=== PATIENT | female | born 1985 | race Caucasian/White ===

== ENCOUNTER → 2017-08-11 | Outpatient (CLI) | payer OTHER ==
--- NOTE | 2017-08-11 16:52 | Diagnostic Imaging Report ---
PROCEDURE: US OB SINGLE FETUS <14 WKS. TECHNIQUE: Multiple real-time grayscale images were obtained over the gravid uterus in various projections. INDICATION: Size and dates. FINDINGS: A richter gestation has crown-rump length compatible with an age of 9 weeks 2 days, sonographic date of confinement 03/14/2018. Heart rate of 169 beats per minute confirmed. There is no adnexal lesion. No extrauterine gestation. No jordan-sac hemorrhage or pathological fluid collection. The shape of the sac and amniotic volume appear grossly unremarkable. IMPRESSION: Early richter viable IUP measures 9 weeks 2 days. No pathological finding demonstrated. Dictated on workstation # [id number]
== END ==
LOC: RAD 14:33
PROVIDERS: ATTEND Family Medicine
DX: Z34.81 Encounter for supervision of other normal pregnancy, first trimester (principal); Z3A.09 9 weeks gestation of pregnancy
CPT/HCPCS: 76801

== ENCOUNTER → 2017-10-27 | Outpatient (CLI) | payer OTHER ==
--- NOTE | 2017-10-27 15:30 | Diagnostic Imaging Report ---
INDICATION: survey. TECHNIQUE: Multiple real-time grayscale images were obtained over the gravid uterus. COMPARISON: 08/11/2017. FINDINGS: There is a single live fetus in a cephalic presentation. Placenta is anterior. The amniotic fluid volume is normal. heart rate was recorded at 155 beats per minute. survey demonstrates kidneys, bladder, and stomach to be unremarkable. brain is unremarkable. There is a three-vessel cord with normal cord insertion. The four-chamber heart view was limited in evaluation. In addition, spine is limited due to position. Biometrical measurements are as follows: Biparietal 4.9 cm, age 20 weeks 6 days. Head circumference 18.0 cm, age 20 weeks 4 days. Abdominal circumference 15.0 cm, age 20 weeks 2 days. Femur length 3.4 cm, age 20 weeks 4 days. Sonographic estimate age: 24 weeks 5 days. Sonographic estimated date of delivery: 03/12/18. Estimated Weight: 350 gm (+/- 51 gm). LMP percentile: 52%. heart rate: 155 beats per minute. number: 1 of 1. IMPRESSION: Single live IUP of approximately 25 weeks gestational age demonstrating normal interval growth when compared with exam from 08/11/2017. The four-chamber heart view and spine were limited due to position. Followup could be performed. Dictated by: Dictated on workstation # [id number]
== END ==
LOC: RAD 14:20
PROVIDERS: ATTEND Family Medicine
DX: Z34.82 Encounter for supervision of other normal pregnancy, second trimester (principal); Z3A.25 25 weeks gestation of pregnancy
CPT/HCPCS: 76805

== ENCOUNTER → 2017-11-17 | Outpatient (CLI) | payer OTHER ==
--- NOTE | 2017-11-17 15:50 | Diagnostic Imaging Report ---
INDICATION: Followup spine and four-chamber heart. TECHNIQUE: Multiple real-time grayscale images were obtained over the gravid uterus. COMPARISON: 10/27/2017. FINDINGS: There is a single live fetus in a transverse presentation. The placenta is anterior. The amniotic fluid volume appears normal. heart rate is recorded at 143 beats per minute. There is a four-chamber heart view on today's study. The spine continues to be limited in evaluation due to position. Cervical length is 4.3 cm. IMPRESSION: Continued limited evaluation of the spine. Followup could be obtained. Dictated by: Dictated on workstation # [id number]
== END ==
LOC: RAD 14:28
PROVIDERS: ATTEND Family Medicine
DX: Z04.8 Encounter for examination and observation for other specified reasons (principal); Z3A.23 23 weeks gestation of pregnancy
CPT/HCPCS: 76816

== ENCOUNTER → 2018-01-16 | Outpatient (CLI) | payer OTHER ==
--- NOTE | 2018-01-16 19:59 | Diagnostic Imaging Report ---
INDICATION: Previous exam dated 11/17/2017 showed limited visualization of the spine. This limited exam is its follow-up. TECHNIQUE: Multiple real-time grayscale images were obtained over the gravid uterus. COMPARISON: None FINDINGS: The spine appears unremarkable today. Amniotic fluid volume is unremarkable. The placenta is anterior with no abruption or previa. Jimenez gestation has regular heart rate of 149 bpm and is in cephalic position. IMPRESSION: Follow-up exam reveals unremarkable appearance of the spine with normal YOLANDA and no adverse development. Dictated by: Dictated on workstation # [id number]
== END ==
LOC: RAD 14:32
PROVIDERS: ATTEND Family Medicine
DX: Z36.2 Encounter for other antenatal screening follow-up (principal); Z3A.31 31 weeks gestation of pregnancy
CPT/HCPCS: 76816

== ENCOUNTER 2018-03-07 20:51 | Inpatient (IN) | payer OTHER ==
[~2018-03-07] VITALS: Ht 162.6 cm; Wt 76.9 kg
[2018-03-07] VITALS (17 sets, daily range): BP systolic 112–166; BP diastolic 59–92
[2018-03-07] MEDS ORDERED: D5 LR IV SOLUTION 1,000 ML IV ONE (21:10)
[2018-03-07] MEDS: D5 LR IV SOLUTION 1,000 ML IV SCH (21:30)
[2018-03-07] MEDS ORDERED: MINERAL OIL CONCENTRATE 99.9% 15 ML UDC TOP PRN (21:45)
[2018-03-07 21:50] LABS: BASOPHILS % (AUTO) 0 % (0-10); EOSINOPHILS % (AUTO) 0 % (0-10); HEMATOCRIT 36 % (35-52); HEMOGLOBIN 13.1 G/DL (11.5-16.0); LYMPHOCYTES % (AUTO) 9 % (12-44); MEAN CORPUSCULAR HEMOGLOBIN 33 PG (25-34); MEAN CORPUSCULAR HGB CONC 36 G/DL (32-36); MEAN CORPUSCULAR VOLUME 92 FL (80-99); MEAN PLATELET VOLUME 9.9 FL (7.4-10.4); MONOCYTES # (AUTO) 1.5 X 10^3 (0.0-1.0); MONOCYTES % (AUTO) 7 % (0-12); NEUTROPHILS # (AUTO) 18.2 X 10^3 (1.8-7.8); NEUTROPHILS % (AUTO) 84 % (42-75); PLATELET COUNT 366 10^3/uL (130-400); RED BLOOD COUNT 3.92 10^6/uL (4.35-5.85); RED CELL DISTRIBUTION WIDTH 12.9 % (10.0-14.5); WHITE BLOOD COUNT 21.8 10^3/uL (4.3-11.0)
[2018-03-07] MEDS ORDERED: CATHETER FLUSH 10 ML SYR IV SCH (22:00)
[2018-03-07] MEDS ORDERED: SUFENTA 0.6MCG/ML BUPIVA 0.125 100 ML ONE (22:08)
[2018-03-07 22:13] LABS: BAND NEUTROPHILS 18 %; BASOPHILS % (MANUAL) 0 %; EOSINOPHILS % (MANUAL) 0 %; LYMPHOCYTES % (MANUAL) 13 %; MONOCYTES % (MANUAL) 6 %; NEUTROPHILS % (MANUAL) 63 %
[2018-03-07 22:14] LABS: RBC MORPH NORMAL
[2018-03-07] MEDS ORDERED: fentaNYL INJECTION 100 MCG/2 ML AMP ONE (22:15)
[2018-03-07] MEDS ORDERED: BUPIVACAINE 0.25% 30 ML (SENSORCAINE) VIAL ONE (22:15)
[2018-03-07] MEDS ORDERED: RANI150T11 PO ×2 (22:20)
[2018-03-07] MEDS ORDERED: PREN-37 PO ×2 (22:21)
--- NOTE | 2018-03-07 22:22 | History & Physical-OB ---
OB - Chief Complaint & HPI Date/Time Date of Admission: Date of Admission: 03/07/18 Time Seen by Provider: 22:00 Chief Complaint/History OB-Reason for Admission/Chief: Rupture of Membranes Hx : 1 Hx Para: 0 Expected Date of Delivery: Mar 13, 2018 Gestational Age in Weeks: 39 Gestational Age in Days: 1 Other reason for admission: SROM at home just prior to arrival around 2100 while sitting at the table. History of Labs O+, ant neg, RI. HIV/HepB/RPR NR. GC/chlamydia neg. Glucola normal. GBS neg. Allergies and Home Medications Allergies Coded Allergies: erythromycin base (Verified Allergy, Unknown, 03/07/18) Home Medications Vit/Iron Fumarate/FA 1 Each Tablet, 1 EACH PO DAILY, (Reported) Ranitidine HCl 150 Mg Tablet, 150 MG PO DAILY, (Reported) Patient Home Medication List Home Medication List Reviewed: Yes OB - History Hx of Present Care: Yes Ultrasounds: Normal mid trimester US Obstetrical Complications: None (borderline elevated BP last few visits) Information Induced Hypertension: No Maternal Gestational Diabetes: No Hemorrhage: No Obstetrical History Hx : 1 Hx Para: 0 Hx # Term Pregnancies: 0 Hx # Pregnancies: 0 Number of Living Children: 0 Hx Termination: No Hx Multiple Gestation: No Hx Ectopic : No Hx Stillbirth: No Hx Complication: No Hx Induced Hypertens: No Hx Maternal Gestational Diabet: No Hx Hemorrhage: No Delivery History Hx Dystocia: No Hx Forceps Assisted Delivery: No Hx Vacuum Extraction Assisted: No Hx Placenta Abnormality: No Hx Distress: No Hx Large For Gestational Age I: No Hx Small for Gestational Age I: No Hx Section: No Hx Vaginal Delivery Post C-Sec: No Hx Blood Disorders: No Adverse Rxn to Tranfusion: No Patient Past Medical History PMHx: Denies PSurgHx: appendectomy Social History/Family History HIV/AIDS: No Recent Infectious Disease Expo: No Sexually Transmitted Disease: No Alcohol Use: Denies Use Recreational Drug Use: No Smoking Cessation: Current every day smoker Immunizations Tetanus Booster (TDap): Less than 5yrs Rubella: immune RPR/VDRL: Negative GBS Status: Negative HBsAG: Negative OB - Admission Exam Physical Exam HEENT: NCAT Abdomen: Non tender Cervical Dilatation: other (3.5) Effacement: 100% Station: 0 Membranes: Ruptured Amniotic Fluid: Thin Meconium Heart Rate: 150's Decelerations: Late Decelarations Short Term Variability: Present Contractions on Admission: < 5 Minutes Apart Intensity: Firm Labs Laboratory Tests Test 03/07/18 21:30 Range/Units White Blood Count 21.8 H 4.3-11.0 10^3/uL Red Blood Count 3.92 L 4.35-5.85 10^6/uL Hemoglobin 13.1 11.5-16.0 G/DL Hematocrit 36 35-52 % Mean Corpuscular Volume 92 80-99 FL Mean Corpuscular Hemoglobin 33 25-34 PG Mean Corpuscular Hemoglobin Concent 36 32-36 G/DL Red Cell Distribution Width 12.9 10.0-14.5 % Platelet Count 366 130-400 10^3/uL Mean Platelet Volume 9.9 7.4-10.4 FL Neutrophils (%) (Auto) 84 H 42-75 % Lymphocytes (%) (Auto) 9 L 12-44 % Monocytes (%) (Auto) 7 0-12 % Eosinophils (%) (Auto) 0 0-10 % Basophils (%) (Auto) 0 0-10 % Neutrophils # (Auto) 18.2 H 1.8-7.8 X 10^3 Lymphocytes # (Auto) 2.0 1.0-4.0 X 10^3 Monocytes # (Auto) 1.5 H 0.0-1.0 X 10^3 Eosinophils # (Auto) 0.0 0.0-0.3 10^3/uL Basophils # (Auto) 0.0 0.0-0.1 10^3/uL Neutrophils % (Manual) 63 % Lymphocytes % (Manual) 13 % Monocytes % (Manual) 6 % Eosinophils % (Manual) 0 % Basophils % (Manual) 0 % Band Neutrophils 18 % Blood Morphology Comment NORMAL OB - Assessment/Plan/Diagnosis Assessment Assessment: active labor, rupture of membranes Admission Dx Term intrauterine at 39 weeks Spontaneous rupture of membranes Meconium stained fluid GBS neg RI Admission Status: Inpatient Order (span 2 midnights) Reason for Inpatient Admission: Labor and delivery and course. Plan Plan: Expectant Management Other Plan Recurrent late decelerations noted shortly after arrival with good variability, resolved with lying left side, fluid bolus and supplemental oxygen. Will monitor closely. AGNES CODY MD Mar 07, 2018 10:22 pm
--- OUTSIDE RECORDS SUMMARY | 2018-03-07 22:31 | XMS REPORT ---
Author Author ESCOBAR AGNES [facility] Address [address] [place] [address] Care Team Providers Care Drug Abuse Program Coordinator Name Role Phone ESCOBAR AGNES Unavailable PROBLEMS Type Condition ICD9-CM Code [id number] Code Onset Dates Condition Status SNOMED Code Problem care, first in third trimester Z34.03 Active 840595281 ALLERGIES No Information ENCOUNTERS Encounter Location Date Diagnosis [place] [address] [place] [address] 52855- 5832 Feb, [place] [address] [place] [id number] [place] [address] 39451- 6567 Feb, care, first in third trimester Z34.03 and 38 weeks gestation of Z3A.38 [place] [address] [id number] [place] [address] 41201- 9840 Jan, care, first in third trimester Z34.03 and 37 weeks gestation of Z3A.37 [place] [address] [place] [address] 37354- 1027 Jan, care, first in third trimester Z34.03 ; Third trimester Z34.93 and 36 weeks gestation of Z3A.36 [place] [address] [id number] [place] [address] 39145- 5222 Jan, care, first in third trimester Z34.03 and 34 weeks gestation of Z3A.34 [place] [address] [id number] [place] [address] 03381- 6021 Dec, Third trimester Z33.1 and 32 weeks gestation of Z3A.32 [place] [address] [place] [address] [id number] [place] [address] 68939- 8313 Dec, [place] [address] [place] [address] 43632- 3909 10 Dec, 2017 Third trimester Z34.93 ; Encounter for immunization Z23 ; Evaluate anatomy not seen on prior sonogram Z04.8 and 30 weeks gestation of Z3A.30 [place] [address] [id number] [place] [address] 45788- 4170 27 Nov, 2017 Diabetes mellitus screening Z13.1 ; 28 weeks gestation of Z3A.28 and care, first in third trimester Z34.03 [place] [address] [address] [id number] [place] [address] 90231- 6399 07 Nov, 2017 Encounter for physical examination related to employment Z02.1 [place] [address] [place] [address] [id number] [place] [address] 02119- 3449 24 Oct, 2017 [place] [address] [address] [id number] [place] [address] 35704- 2454 14 Oct, 2017 21 weeks gestation of Z3A.21 ; Evaluate anatomy not seen on prior sonogram Z04.8 and care in second trimester Z34.92 [place] [address] [address] [id number] [place] [address] 68975- 8404 Sep, Second trimester Z34.92 and 17 weeks gestation of Z3A.17 [place] [address] [address] [id number] [place] [address] 60605- 9994 Aug, [place] [address] [place] [id number] [place] [address] 69140- 1369 Aug, care in first trimester Z34.91 and 12 weeks gestation of Z3A.12 [place] [address] [place] [address] [id number] [place] [address] 62277- 2833 15 Jul, 2017 [place] [address] [id number] [place] [address] 33667- 1846 13 Jul, 2017 Tobacco abuse Z72.0 [place] [address] [address] [id number] [place] [address] 42894- 1912 Jul, Normal , first Z34.00 ; Cervical cancer screening Z12.4 and 8 weeks gestation of Z3A.08 [facility] [address] [place] [id number] [address] Jul, Encounter for test Z32.00 [facility] [address] [facility] [id number] [address]85 Jul, [facility] [address] [facility] [id number] [id number] Mar, Right wrist pain M25.531 and Injury of tendon of right hand , initial encounter S66.901A IMMUNIZATIONS No Known Immunizations SOCIAL HISTORY Never Assessed REASON FOR VISIT Medication recommendation PLAN OF CARE VITAL SIGNS MEDICATIONS Unknown Medications RESULTS No Results PROCEDURES No Known procedures INSTRUCTIONS MEDICATIONS ADMINISTERED No Known Medications MEDICAL (GENERAL) HISTORY Type Description Date Medical History Heart Murmur Surgical History Appendectomy 1995 Hospitalization History Appendectomy 1995
--- OUTSIDE RECORDS SUMMARY | 2018-03-07 22:32 | XMS REPORT ---
Author Author EDUAR CHAVEZ [facility] Address [address] [place] [address] Phone Unavailable Care Team Providers Care Plumbing Contractor Name Role Phone EDUAR CHAVEZ Unavailable Unavailable PROBLEMS Type Condition ICD9-CM Code FPI44-IA Code Onset Dates Condition Status SNOMED Code Problem care, first in third trimester Z34.03 Active [id number] ALLERGIES Substance Reaction Event Type Date Status Erythromycin Unknown Drug Allergy Nov, Active ENCOUNTERS Encounter Location Date Diagnosis [place] [address] [place] [address] 93856- 0055 Feb, [place] [address] [place] [id number] [place] [address] 14880- 9613 Feb, [facility] [address] [place] [address] [id number] [place] [address] 87717- 9844 Jan, care, first in third trimester Z34.03 and 37 weeks gestation of Z3A.37 [place] [address] [place] [id number] [place] [address] 93261- 5024 Jan, care, first in third trimester Z34.03 ; Third trimester Z34.93 and 36 weeks gestation of Z3A.36 [place] [address] [place] [address] 48435- 0775 Jan, care, first in third trimester Z34.03 and 34 weeks gestation of Z3A.34 [place] [address] [place] [id number] [place] [address] 35311- 4566 Dec, Third trimester Z33.1 and 32 weeks gestation of Z3A.32 [place] [address] [place] [address] 50544- 5525 Dec, [place] [address] [place] [address] 12381- 8901 10 Dec, 2017 Third trimester Z34.93 ; Encounter for immunization Z23 ; Evaluate anatomy not seen on prior sonogram Z04.8 and 30 weeks gestation of Z3A.30 [place] [address] [place] [id number] [place] [address] 63023- 2742 27 Nov, 2017 Diabetes mellitus screening Z13.1 ; 28 weeks gestation of Z3A.28 and care, first in third trimester Z34.03 [place] [address] [id number] [place] [address] 97172- 1494 07 Nov, 2017 Encounter for physical examination related to employment Z02.1 [place] [address] [place] [id number] [place] [address] 32868- 5239 24 Oct, 2017 [place] [address] [place] [id number] [place] [address] 81351- 1543 October, 21 weeks gestation of Z3A.21 ; Evaluate anatomy not seen on prior sonogram Z04.8 and care in second trimester Z34.92 [place] [address] [id number] [place] [address] 71961- 1396 12 Sep, 2017 Second trimester Z34.92 and 17 weeks gestation of Z3A.17 [place] [address] [place] [id number] [place] [address] 03362- 1502 Aug, [place] [address] [place] [id number] [place] [address] 18126- 1036 Aug, care in first trimester Z34.91 and 12 weeks gestation of Z3A.12 [place] [address] [place] [id number] [place] [address] 20715- 7589 15 Jul, 2017 [place] [address] [place] [id number] [place] [address] 59826- 2608 13 Jul, 2017 Tobacco abuse Z72.0 [place] [address] [place] [id number] [place] [address] 98488- 6880 12 Jul, 2017 Normal , first Z34.00 ; Cervical cancer screening Z12.4 and 8 weeks gestation of Z3A.08 [facility] [address] [facility] [id number] [address] 02 Jul, 2017 Encounter for test Z32.00 [facility] [address] [facility] [id number], [place] [address] 02 Jul, 2017 [facility] [address] [id number] [address] 07 Mar, 2016 Right wrist pain M25.531 and Injury of tendon of right hand , initial encounter S66.901A IMMUNIZATIONS No Known Immunizations SOCIAL HISTORY Never Assessed REASON FOR VISIT [facility] (PHA/vision)-Stella HUGHES PLAN OF CARE Activity Details Follow Up prn Reason: VITAL SIGNS Height 64 in 2017-11-30 Weight 157.3 lbs 2017-11-30 Temperature 98.6 degrees Fahrenheit 2017-11-30 Heart Rate 78 bpm 2017-11-30 Respiratory Rate 20 2017-11-30 Oximetry 98 % 2017-11-30 BMI 27 kg/m2 2017-11-30 Blood pressure systolic 110 mmHg 2017-11-30 Blood pressure diastolic 72 mmHg 2017-11-30 MEDICATIONS Medication Instructions Dosage Frequency Start Date End Date Duration Status Nicorette 2 MG Mouth/Throat 24 time(s) a day 1 piece as needed Jul, Not-Taking Vitamin 27-0.8 MG Active RESULTS No Results PROCEDURES Procedure Date Ordered Result Body Site VISUAL ACUITY SCREEN November 30, 2017 INSTRUCTIONS MEDICATIONS ADMINISTERED No Known Medications MEDICAL (GENERAL) HISTORY Type Description Date Medical History Heart Murmur Surgical History Appendectomy 1995 Hospitalization History Appendectomy 1995
--- OUTSIDE RECORDS SUMMARY | 2018-03-07 22:32 | XMS REPORT ---
Author Author ESCOBAR AGNES [facility] Address [address] [place] [address] Care Team Providers Care Geologist Petroleum Name Role Phone ESCOBAR AGNES Unavailable PROBLEMS Type Condition ICD9-CM Code [id number] Code Onset Dates Condition Status SNOMED Code Problem care, first in third trimester Z34.03 Active [id number] ALLERGIES No Information ENCOUNTERS Encounter Location Date Diagnosis [place] [address] [place] [address] 87823- 3951 Feb, [place] [address] [place] [id number] [place] [address] 51097- 7748 Feb, care, first in third trimester Z34.03 and 38 weeks gestation of Z3A.38 [place] [address] [place] [id number] [place] [address] 51601- 5211 Jan, care, first in third trimester Z34.03 and 37 weeks gestation of Z3A.37 [place] [address] [place] [address] 02295- 9707 Jan, care, first in third trimester Z34.03 ; Third trimester Z34.93 and 36 weeks gestation of Z3A.36 [place] [address] [place] [id number] [place] [address] 75106- 8468 Jan, care, first in third trimester Z34.03 and 34 weeks gestation of Z3A.34 [place] [address] [place] [id number] [place] [address] 21730- 1711 Dec, Third trimester Z33.1 and 32 weeks gestation of Z3A.32 [place] [address] [place] [id number] [place] [address] 24495- 1336 Dec, [place] [address] [place] [address] 07715- 9316 10 Dec, 2017 Third trimester Z34.93 ; Encounter for immunization Z23 ; Evaluate anatomy not seen on prior sonogram Z04.8 and 30 weeks gestation of Z3A.30 [place] [address] [place] [id number] [place] [address] 25078- 2873 27 Nov, 2017 Diabetes mellitus screening Z13.1 ; 28 weeks gestation of Z3A.28 and care, first in third trimester Z34.03 [place] [address] [place] [id number] [place] [address] 06884- 8712 07 Nov, 2017 Encounter for physical examination related to employment Z02.1 [place] [address] [place] [id number] [place] [address] 14514- 2985 24 Oct, 2017 [place] [address] [place] [id number] [place] [address] 56306- 3332 14 Oct, 2017 21 weeks gestation of Z3A.21 ; Evaluate anatomy not seen on prior sonogram Z04.8 and care in second trimester Z34.92 [place] [address] [place] [id number] [place] [address] 91474- 0310 Sep, Second trimester Z34.92 and 17 weeks gestation of Z3A.17 [place] [address] [place] [id number] [place] [address] 20983- 6838 Aug, [place] [address] [place] [id number] [place] [address] 68454- 7976 Aug, care in first trimester Z34.91 and 12 weeks gestation of Z3A.12 [place] [address] [place] [id number] [place] [address] 13997- 5585 15 Jul, 2017 [place] [address] [place] [id number] [place] [address] 94138- 6473 13 Jul, 2017 Tobacco abuse Z72.0 [place] [address] [place] [id number] [place] [address] 22774- 5834 12 Jul, 2017 Normal , first Z34.00 ; Cervical cancer screening Z12.4 and 8 weeks gestation of Z3A.08 [facility] [address] [place] [id number] [address]- 2282 02 Jul, 2017 Encounter for test Z32.00 [facility] [address] [facility] [id number] [address] 5133 02 Jul, 2017 [facility] [address] [facility] [id number] [address] 07 Mar, 2016 Right wrist pain M25.531 and Injury of tendon of right hand , initial encounter S66.901A IMMUNIZATIONS Vaccine Route Administration Date Status TDAP (BOOSTRIX) IM Intramuscular January 02, 2018 Administered SOCIAL HISTORY Never Assessed REASON FOR VISIT OB 2wk f/u-awoods PLAN OF CARE Activity Details Follow Up 2 Weeks, 2 Weeks Reason: VITAL SIGNS Height 64 in 2018-01-02 Weight 168.6 lbs 2018-01-02 Temperature 98.8 degrees Fahrenheit 2018-01-02 Heart Rate 100 bpm 2018-01-02 Respiratory Rate 20 2018-01-02 BMI 28.94 kg/m2 2018-01-02 Blood pressure systolic 122 mmHg 2018-01-02 Blood pressure diastolic 70 mmHg 2018-01-02 MEDICATIONS Medication Instructions Dosage Frequency Start Date End Date Duration Status Nicorette 2 MG Mouth/Throat 24 time(s) a day 1 piece as needed Jul, Not-Taking Vitamin 27-0.8 MG Active Tums Active RESULTS No Results PROCEDURES Procedure Date Ordered Result Body Site URINE-NO MICRO January 02, 2018 TDAP (BOOSTRIX) January 02, 2018 SINGLE IMMUNIZATION ADMIN January 02, 2018 INSTRUCTIONS MEDICATIONS ADMINISTERED No Known Medications MEDICAL (GENERAL) HISTORY Type Description Date Medical History Heart Murmur Surgical History Appendectomy 1995 Hospitalization History Appendectomy 1995
--- OUTSIDE RECORDS SUMMARY | 2018-03-07 22:32 | XMS REPORT ---
Author Author ESCOBAR AGNES [facility] Address [address] [place] [address] Care Team Providers Care Direct Care Worker Name Role Phone ESCOBARJESUSAGNES Unavailable PROBLEMS Type Condition ICD9-CM Code OSO36-YV Code Onset Dates Condition Status SNOMED Code Problem care, first in third trimester Z34.03 Active 338242190 ALLERGIES No Information ENCOUNTERS Encounter Location Date Diagnosis [place] [id number] [place] [address] 89818- 8481 Jan, [place] [id number] [place] [address] 26586- 7661 Jan, [place] [id number] [place] [address] 41568- 1457 Dec, [place] [id number] [place] [address] 87561- 7366 Dec, [place] [id number] [place] [address] 00814- 0377 Dec, Third trimester Z34.93 ; Encounter for immunization Z23 ; Evaluate anatomy not seen on prior sonogram Z04.8 and 30 weeks gestation of Z3A.30 [place] [id number] [place] [address] 89604- 9592 Nov, Diabetes mellitus screening Z13.1 ; 28 weeks gestation of Z3A.28 and care, first in third trimester Z34.03 [place] [id number] [place] [address] 31654- 3446 Nov, Encounter for physical examination related to employment Z02.1 [place] [id number] [place] [address] 44879- 3200 October, [place] [id number] [place] [address] 46583- 5510 October, 21 weeks gestation of Z3A.21 ; Evaluate anatomy not seen on prior sonogram Z04.8 and care in second trimester Z34.92 [place] [id number] [place] [address] 14452- 5493 Sep, Second trimester Z34.92 and 17 weeks gestation of Z3A.17 [place] [id number] [place] [address] 17870- 8656 Aug, [place] [address] 15261- 8943 Aug, care in first trimester Z34.91 and 12 weeks gestation of Z3A.12 [place] [id number] [place] [address] 50760- 0130 15 Jul, 2017 [place] [id number] [place] [address] 27764- 4570 13 Jul, 2017 Tobacco abuse Z72.0 [place] [address] 28248- 6489 12 Jul, 2017 Normal , first Z34.00 ; Cervical cancer screening Z12.4 and 8 weeks gestation of Z3A.08 [place] [id number] [place] [address] 29772- 2294 02 Jul, 2017 Encounter for test Z32.00 [place] [id number] [place] [address] 75334- 7533 02 Jul, 2017 [facility] [address] 01702 -0752 07 Mar, 2016 Right wrist pain M25.531 and Injury of tendon of right hand , initial encounter S66.901A IMMUNIZATIONS No Known Immunizations SOCIAL HISTORY Never Assessed REASON FOR VISIT OB 4wk f/u -- natalya pineda PLAN OF CARE Activity Details Follow Up 4 Weeks, 4 Weeks Reason: VITAL SIGNS Height 64 in 2017-09-04 Weight 147.9 lbs 2017-09-04 Temperature 98.0 degrees Fahrenheit 2017-09-04 Heart Rate 82 bpm 2017-09-04 Respiratory Rate 20 2017-09-04 BMI 25.387 kg/m2 2017-09-04 Blood pressure systolic 120 mmHg 2017-09-04 Blood pressure diastolic 76 mmHg 2017-09-04 MEDICATIONS Medication Instructions Dosage Frequency Start Date End Date Duration Status Nicorette 2 MG Mouth/Throat 24 time(s) a day 1 piece as needed Jul, Active Vitamin 27-0.8 MG Active RESULTS Name Result Date Reference Range UA OB DIP (IN HOUSE) 2017-09-04 Glucose neg Protein neg PROCEDURES Procedure Date Ordered Result Body Site URINE-NO MICRO September 04, 2017 INSTRUCTIONS MEDICATIONS ADMINISTERED No Known Medications MEDICAL (GENERAL) HISTORY Type Description Date Medical History Heart Murmur Surgical History Appendectomy 1995 Hospitalization History Appendectomy 1995
--- OUTSIDE RECORDS SUMMARY | 2018-03-07 22:32 | XMS REPORT ---
Author Author ESCOBAR AGNES [facility] Address [address] [place] [address] Care Team Providers Care Biology Instructor Name Role Phone ESCOBARJESUS MITCHELLHANY Unavailable PROBLEMS Type Condition ICD9-CM Code EAA68-EA Code Onset Dates Condition Status SNOMED Code Problem care, first in third trimester Z34.03 Active [id number] ALLERGIES Substance Reaction Event Type Date Status Erythromycin Unknown Drug Allergy Jul, Active ENCOUNTERS Encounter Location Date Diagnosis [place] [id number] [place] [address] 79077- 3475 Jan, [place] [id number] [place] [address] 06204- 6088 Jan, [facility] [id number] [place] [address] 79342- 1265 Dec, [place] [id number] [place] [address] 48147- 4183 Dec, [place] [id number] [place] [address] 31127- 5941 Nov, Diabetes mellitus screening Z13.1 ; 28 weeks gestation of Z3A.28 and care, first in third trimester Z34.03 [facility] [id number] [place] [address] 17741- 8451 Nov, Encounter for physical examination related to employment Z02.1 [facility] [id number] [place] [address] 38370- 1395 October, [place] [id number] [place] [address] 29670- 9606 October, 21 weeks gestation of Z3A.21 ; Evaluate anatomy not seen on prior sonogram Z04.8 and care in second trimester Z34.92 [place] [id number] [place] [address] 06967- 1424 Sep, Second trimester Z34.92 and 17 weeks gestation of Z3A.17 [place] [id number] [place] [address] 42925- 2451 23 Aug, 2017 [place] [address] 17148- 9975 Aug, care in first trimester Z34.91 and 12 weeks gestation of Z3A.12 [place] [id number] [place] [address] 50620- 6512 15 Jul, 2017 [place] [id number] [place] [address] 75272- 2824 13 Jul, 2017 Tobacco abuse Z72.0 [place] [address] 00662- 4454 12 Jul, 2017 Normal , first Z34.00 ; Cervical cancer screening Z12.4 and 8 weeks gestation of Z3A.08 [place] [id number] [place] [address] 03304- 1358 02 Jul, 2017 Encounter for test Z32.00 [place] [id number] [place] [address] 44130- 7193 02 Jul, 2017 [facility] [id number] [place] [address] 85160 -2313 Mar, Right wrist pain M25.531 and Injury of tendon of right hand , initial encounter S66.903F IMMUNIZATIONS No Known Immunizations SOCIAL HISTORY Never Assessed REASON FOR VISIT OB-intake--tcuppettRn PLAN OF CARE Activity Details Follow Up 4W, 4 Weeks Reason: VITAL SIGNS Height 64 in 2017-08-07 Weight 148.7 lbs 2017-08-07 Temperature 97.5 degrees Fahrenheit 2017-08-07 Heart Rate 76 bpm 2017-08-07 Respiratory Rate 18 2017-08-07 BMI 25.524 kg/m2 2017-08-07 Blood pressure systolic 128 mmHg 2017-08-07 Blood pressure diastolic 70 mmHg 2017-08-07 MEDICATIONS Medication Instructions Dosage Frequency Start Date End Date Duration Status Vitamin 27-0.8 MG Active RESULTS No Results PROCEDURES Procedure Date Ordered Result Body Site RUBELLA ANTIBODY Aug 07, 2017 SPECIMEN HANDLING Aug 07, 2017 No Charge Aug 07, 2017 VENIPUNCT, ROUTINE* Aug 07, 2017 TRICHOMONAS ASSAY W/OPTIC Aug 07, 2017 URINALYSIS, AUTO, W/O SCOPE Aug 07, 2017 CULTURE, BACTERIA, OTHER Aug 07, 2017 COMPLETE CBC W/AUTO DIFF WBC Aug 07, 2017 ASSAY THYROID STIM HORMONE Aug 07, 2017 URINE CULTURE/COLONY COUNT Aug 07, 2017 RBC ANTIBODY SCREEN Aug 07, 2017 BLOOD TYPING, ABO Aug 07, 2017 BLOOD TYPING, RH (D) Aug 07, 2017 INSTRUCTIONS MEDICATIONS ADMINISTERED No Known Medications MEDICAL (GENERAL) HISTORY Type Description Date Medical History Heart Murmur Surgical History Appendectomy 1995 Hospitalization History Appendectomy 1995
--- OUTSIDE RECORDS SUMMARY | 2018-03-07 22:32 | XMS REPORT ---
Author Author MARY FLORES Organization [facility] Address [address] [place] [address] Care Team Providers Care Laundry Presser Name Role Phone MARY FLORES Unavailable PROBLEMS Type Condition ICD9-CM Code TLU55-NQ Code Onset Dates Condition Status SNOMED Code Problem care, first in third trimester Z34.03 Active 101721024 ALLERGIES No Information ENCOUNTERS Encounter Location Date Diagnosis [place] [id number] [place] [address] 41359- 4462 Jan, [facility] [id number] [place] [address] 69358- 9679 Jan, [facility] [id number] [place] [address] 33988- 6762 Dec, [facility] [id number] [place] [address] 11200- 3318 Dec, [place] [id number] [place] [address] 27968- 9205 Dec, Third trimester Z34.93 ; Encounter for immunization Z23 ; Evaluate anatomy not seen on prior sonogram Z04.8 and 30 weeks gestation of Z3A.30 [facility] [id number] [place] [address] 71773- 2258 Nov, Diabetes mellitus screening Z13.1 ; 28 weeks gestation of Z3A.28 and care, first in third trimester Z34.03 [facility] [id number] [place] [address] 47980- 7734 Nov, Encounter for physical examination related to employment Z02.1 [place] [id number] [place] [address] 70238- 0652 October, [place] [id number] [place] [address] 62639- 1020 October, 21 weeks gestation of Z3A.21 ; Evaluate anatomy not seen on prior sonogram Z04.8 and care in second trimester Z34.92 [place] [id number] [place] [address] 76989- 6912 Sep, Second trimester Z34.92 and 17 weeks gestation of Z3A.17 [place] [id number] [place] [address] 84154- 8085 Aug, [place] [address] 81277- 0445 Aug, care in first trimester Z34.91 and 12 weeks gestation of Z3A.12 [place] [address] 86859- 3801 15 Jul, 2017 [place] [address] 34402- 0977 13 Jul, 2017 Tobacco abuse Z72.0 [place] [address] 97262- 4462 12 Jul, 2017 Normal , first Z34.00 ; Cervical cancer screening Z12.4 and 8 weeks gestation of Z3A.08 [place] [id number] [place] [address] 86973- 6280 02 Jul, 2017 Encounter for test Z32.00 [place] [id number] [place] [address] 93597- 8499 02 Jul, 2017 [facility] [id number] [place] [address] 68933 -9252 07 Mar, 2016 Right wrist pain M25.531 and Injury of tendon of right hand , initial encounter S66.901A IMMUNIZATIONS No Known Immunizations SOCIAL HISTORY Never Assessed REASON FOR VISIT ROCEPHIN ORDER PLAN OF CARE VITAL SIGNS MEDICATIONS Unknown Medications RESULTS No Results PROCEDURES No Known procedures INSTRUCTIONS MEDICATIONS ADMINISTERED No Known Medications MEDICAL (GENERAL) HISTORY Type Description Date Medical History Heart Murmur Surgical History Appendectomy 1995 Hospitalization History Appendectomy 1995
--- OUTSIDE RECORDS SUMMARY | 2018-03-07 22:32 | XMS REPORT ---
Author Author ESCOBAR AGNES [facility] Address [address] [place] [address] Care Team Providers Care Automatic Driller And Reamer Name Role Phone ESCOBARJESUS MITCHELLHANY Unavailable PROBLEMS Type Condition ICD9-CM Code OOG21-XP Code Onset Dates Condition Status SNOMED Code Problem care, first in third trimester Z34.03 Active [id number] ALLERGIES No Information ENCOUNTERS Encounter Location Date Diagnosis [place] [address] [place] [address] 08022- 6088 Jan, [place] [id number] [place] [address] 09845- 8646 Jan, [place] [id number] [place] [address] 94818- 8570 Dec, [place] [id number] [place] [address] 01794- 3220 Dec, [place] [id number] [place] [address] 94579- 5610 Nov, Diabetes mellitus screening Z13.1 ; 28 weeks gestation of Z3A.28 and care, first in third trimester Z34.03 [place] [address] [place] [address] 97088- 7539 Nov, Encounter for physical examination related to employment Z02.1 [place] [id number] [place] [address] 01017- 2643 October, [place] [id number] [place] [address] 66977- 2359 October, 21 weeks gestation of Z3A.21 ; Evaluate anatomy not seen on prior sonogram Z04.8 and care in second trimester Z34.92 [facility] [address] [place] [address]- 2968 Sep, Second trimester Z34.92 and 17 weeks gestation of Z3A.17 [facility] [address] [address]- 0332 23 Aug, 2017 [facility] [id number] [place] [address] 84753- 3389 Aug, care in first trimester Z34.91 and 12 weeks gestation of Z3A.12 [facility] [address] [place] [address] 62236- 0807 15 Jul, 2017 [place] [id number] [place] [address] 10774- 0465 13 Jul, 2017 Tobacco abuse Z72.0 [place] [id number] [place] [address] 82138- 0156 12 Jul, 2017 Normal , first Z34.00 ; Cervical cancer screening Z12.4 and 8 weeks gestation of Z3A.08 [facility] [address] [place] [address]- 8969 02 Jul, 2017 Encounter for test Z32.00 [facility] [address] [place] [address]- 1693 02 Jul, 2017 [facility] [address], [place] [address] -1159 07 Mar, 2016 Right wrist pain M25.531 and Injury of tendon of right hand , initial encounter S66.901A IMMUNIZATIONS No Known Immunizations SOCIAL HISTORY Never Assessed REASON FOR VISIT Pap Results history update PLAN OF CARE VITAL SIGNS MEDICATIONS Unknown Medications RESULTS No Results PROCEDURES No Known procedures INSTRUCTIONS MEDICATIONS ADMINISTERED No Known Medications MEDICAL (GENERAL) HISTORY Type Description Date Medical History Heart Murmur Surgical History Appendectomy 1995 Hospitalization History Appendectomy 1995
--- OUTSIDE RECORDS SUMMARY | 2018-03-07 22:32 | XMS REPORT ---
Author Author ESCOBAR AGNES [facility] Address [address] [place] [address] Care Team Providers Care Certified Legal Secretary Specialist Name Role Phone ESCOBARJESUSAGNES Unavailable PROBLEMS Type Condition ICD9-CM Code STX51-DK Code Onset Dates Condition Status SNOMED Code Problem care, first in third trimester Z34.03 Active [id number] ALLERGIES Substance Reaction Event Type Date Status Erythromycin Unknown Drug Allergy Nov, Active ENCOUNTERS Encounter Location Date Diagnosis [address] [id number] [place] [address] 28033- 3997 Feb, [place] [address] [place] [address] 07566- 6400 Feb, [place] [address] [place] [address] 45884- 0200 Jan, care, first in third trimester Z34.03 and 37 weeks gestation of Z3A.37 [place] [id number] [place] [address] 96885- 6776 Jan, care, first in third trimester Z34.03 ; Third trimester Z34.93 and 36 weeks gestation of Z3A.36 [place] [id number] [place] [address] 13600- 7313 Jan, care, first in third trimester Z34.03 and 34 weeks gestation of Z3A.34 [place] [id number] [place] [address] 16344- 2790 Dec, Third trimester Z33.1 and 32 weeks gestation of Z3A.32 [place] [address] [place] [address] 65248- 1665 Dec, [place] [address] [address]- 8192 10 Dec, 2017 Third trimester Z34.93 ; Encounter for immunization Z23 ; Evaluate anatomy not seen on prior sonogram Z04.8 and 30 weeks gestation of Z3A.30 [place] [address], [place] [address]- 7989 27 Nov, 2017 Diabetes mellitus screening Z13.1 ; 28 weeks gestation of Z3A.28 and care, first in third trimester Z34.03 [place] [id number] [place] [address] 98150- 5300 07 Nov, 2017 Encounter for physical examination related to employment Z02.1 [place] [id number] [place] [address] 52020- 3136 24 Oct, 2017 [place] [address] [place] [address] 28068- 7383 October, 21 weeks gestation of Z3A.21 ; Evaluate anatomy not seen on prior sonogram Z04.8 and care in second trimester Z34.92 [place] [address] [place] [address] 06590- 9912 Sep, Second trimester Z34.92 and 17 weeks gestation of Z3A.17 [place] [address] [place] [address] 58968- 1396 Aug, [place] [address] [place] [address] 52039- 0070 Aug, care in first trimester Z34.91 and 12 weeks gestation of Z3A.12 [place] [id number] [place] [address] 26838- 1736 15 Jul, 2017 [place] [id number] [place] [address] 78158- 3921 13 Jul, 2017 Tobacco abuse Z72.0 [place] [id number] [place] [address] 01449- 1430 12 Jul, 2017 Normal , first Z34.00 ; Cervical cancer screening Z12.4 and 8 weeks gestation of Z3A.08 [facility] [address] [id number] [address]- 9758 02 Jul, 2017 Encounter for test Z32.00 [facility] [address] [id number] [address]- 6825 02 Jul, 2017 [facility] [address] [id number] [address] 07 Mar, 2016 Right wrist pain M25.531 and Injury of tendon of right hand , initial encounter S66.902M IMMUNIZATIONS No Known Immunizations SOCIAL HISTORY Never Assessed REASON FOR VISIT OB 4wk f/u-Johana Julian PLAN OF CARE Activity Details Follow Up 2 Weeks, 2 Weeks Reason: VITAL SIGNS Height 64 in 2017-12-20 Weight 163.2 lbs 2017-12-20 Temperature 97.9 degrees Fahrenheit 2017-12-20 Heart Rate 76 bpm 2017-12-20 Respiratory Rate 18 2017-12-20 BMI 28.013 kg/m2 2017-12-20 Blood pressure systolic 134 mmHg 2017-12-20 Blood pressure diastolic 76 mmHg 2017-12-20 MEDICATIONS Medication Instructions Dosage Frequency Start Date End Date Duration Status Nicorette 2 MG Mouth/Throat 24 time(s) a day 1 piece as needed Jul, Not-Taking Vitamin 27-0.8 MG Active RESULTS No Results PROCEDURES Procedure Date Ordered Result Body Site COMPLETE CBC W/AUTO DIFF WBC December 20, 2017 GLUCOSE TEST December 20, 2017 VENIPUNCT, ROUTINE* December 20, 2017 URINE-NO MICRO December 20, 2017 INSTRUCTIONS MEDICATIONS ADMINISTERED No Known Medications MEDICAL (GENERAL) HISTORY Type Description Date Medical History Heart Murmur Surgical History Appendectomy 1995 Hospitalization History Appendectomy 1995
--- OUTSIDE RECORDS SUMMARY | 2018-03-07 22:32 | XMS REPORT ---
Author Author AGNES CODY [facility] Address [address] [place] [address] Care Team Providers Care Grapple Crew Leader Name Role Phone AGNES CODY Unavailable PROBLEMS Type Condition ICD9-CM Code AXP30-KV Code Onset Dates Condition Status SNOMED Code Problem care, first in third trimester Z34.03 Active [id number] ALLERGIES Substance Reaction Event Type Date Status Erythromycin Unknown Drug Allergy October, Active ENCOUNTERS Encounter Location Date Diagnosis [address] [id number] [place] [address] 03291- 1233 Jan, [place] [id number] [place] [address] 02933- 4728 Jan, [place] [address] [place] [address] 15448- 1953 Jan, care, first in third trimester Z34.03 and 34 weeks gestation of Z3A.34 [address] [address] [place] [address] 97275- 7507 24 Dec, 2017 Third trimester Z33.1 and 32 weeks gestation of Z3A.32 [address] [address] [place] [address] 59161- 7398 Dec, [place] [address] [place] [address] 33928- 7524 Dec, Third trimester Z34.93 ; Encounter for immunization Z23 ; Evaluate anatomy not seen on prior sonogram Z04.8 and 30 weeks gestation of Z3A.30 [place] [address] [place] [address] 34147- 8295 Nov, Diabetes mellitus screening Z13.1 ; 28 weeks gestation of Z3A.28 and care, first in third trimester Z34.03 [place] [id number] [place] [address] 56420- 2183 07 Nov, 2017 Encounter for physical examination related to employment Z02.1 [place] [id number] [place] [address] 61337- 2307 24 Oct, 2017 [place] [address] 13060- 0362 October, 21 weeks gestation of Z3A.21 ; Evaluate anatomy not seen on prior sonogram Z04.8 and care in second trimester Z34.92 [place] [address] 96518- 7426 12 Sep, 2017 Second trimester Z34.92 and 17 weeks gestation of Z3A.17 [place] [id number] [place] [address] 60131- 9609 23 Aug, 2017 [place] [address] 17431- 0279 Aug, care in first trimester Z34.91 and 12 weeks gestation of Z3A.12 [place] [id number] [place] [address] 80267- 6520 15 Jul, 2017 [place] [id number] [place] [address] 61309- 9082 13 Jul, 2017 Tobacco abuse Z72.[address] 50806- 9982 12 Jul, 2017 Normal , first Z34.00 ; Cervical cancer screening Z12.4 and 8 weeks gestation of Z3A.[address] 79310- 6485 02 Jul, 2017 Encounter for test Z32.00 [place] [id number] [place] [address] 66881- 0760 Jul, [facility] [id number] [address]96 Mar, Right wrist pain M25.531 and Injury of tendon of right hand , initial encounter S66.901A IMMUNIZATIONS No Known Immunizations SOCIAL HISTORY Never Assessed REASON FOR VISIT OB 4wk f/u. hany PLAN OF CARE Activity Details Follow Up 4 Weeks, 4 Weeks, 4 Weeks Reason: VITAL SIGNS Height 64 in 2017-11-06 Weight 157.4 lbs 2017-11-06 Temperature 98.2 degrees Fahrenheit 2017-11-06 Heart Rate 72 bpm 2017-11-06 Respiratory Rate 18 2017-11-06 BMI 27.018 kg/m2 2017-11-06 Blood pressure systolic 120 mmHg 2017-11-06 Blood pressure diastolic 80 mmHg 2017-11-06 MEDICATIONS Medication Instructions Dosage Frequency Start Date End Date Duration Status Nicorette 2 MG Mouth/Throat 24 time(s) a day 1 piece as needed Jul, Active Vitamin 27-0.8 MG Active RESULTS Name Result Date Reference Range UA OB DIP (IN HOUSE) 2017-11-06 Glucose negative Protein negative Ultrasound : OB, Follow-up 2017-11-17 PROCEDURES Procedure Date Ordered Result Body Site URINE-NO MICRO November 06, 2017 INSTRUCTIONS MEDICATIONS ADMINISTERED No Known Medications MEDICAL (GENERAL) HISTORY Type Description Date Medical History Heart Murmur Surgical History Appendectomy 1995 Hospitalization History Appendectomy 1995
--- OUTSIDE RECORDS SUMMARY | 2018-03-07 22:32 | XMS REPORT ---
Author Author ESCOBAR AGNES [facility] Address [address] [place] [address] Care Team Providers Care Mouse Breeder Name Role Phone ESCOBARJESUSAGNES Unavailable PROBLEMS Type Condition ICD9-CM Code ZPM35-AC Code Onset Dates Condition Status SNOMED Code Problem care, first in third trimester Z34.03 Active [id number] ALLERGIES No Information ENCOUNTERS Encounter Location Date Diagnosis [place] [id number] [place] [phone]- [address]406 Jan, [place] [address] [address] Jan, [address] [address] Jan, care, first in third trimester Z34.03 and 34 weeks gestation of Z3A.34 [place] [id number] [place] [address] 83214- 2391 Dec, Third trimester Z33.1 and 32 weeks gestation of Z3A.32 [place] [address] [place] [id number] [place] [address] 134[address] Dec, [address] [address] Dec, Third trimester Z34.93 ; Encounter for immunization Z23 ; Evaluate anatomy not seen on prior sonogram Z04.8 and 30 weeks gestation of Z3A.30 [place] [address] [place] [id number] [place] [address] 90811- 7627 Nov, Diabetes mellitus screening Z13.1 ; 28 weeks gestation of Z3A.28 and care, first in third trimester Z34.03 [place] [address] [place] [id number] [place] [address] [phone]- 14[address] 07 Nov, 2017 Encounter for physical examination related to employment Z02.1 [place] [address] [place] [id number] [place] [address] 91257- 0[address] 24 Oct, 2017 [place] [address] [place] [id number] [place] [address] 65979- 8662 October, 21 weeks gestation of Z3A.21 ; Evaluate anatomy not seen on prior sonogram Z04.8 and care in second trimester Z34.92 [place] [address] [place] [id number] [place] [address] 91387- 6809 Sep, Second trimester Z34.92 and 17 weeks gestation of Z3A.17 [place] [address] [place] [id number] [place] [address] 59877- 0256 Aug, [place] [address] [address] Aug, care in first trimester Z34.91 and 12 weeks gestation of Z3A.12 [place] [address] [address]- [address] 15 Jul, 2017 [place] [address] [place] [id number] [place] [address] 21468- 5698 13 Jul, 2017 Tobacco abuse Z72.0 [place] [address] [address]- [address] 12 Jul, 2017 Normal , first Z34.00 ; Cervical cancer screening Z12.4 and 8 weeks gestation of Z3A.08 [place] [address] [place] [id number] [place] [address] 01500- 7676 02 Jul, 2017 Encounter for test Z32.00 [place] [address] [place] [id number] [place] [address] 98468- 9506 02 Jul, 2017 [facility] [address] [address] Mar, Right wrist pain M25.531 and Injury of tendon of right hand , initial encounter S66.299A IMMUNIZATIONS No Known Immunizations SOCIAL HISTORY Never Assessed REASON FOR VISIT Patient Call PLAN OF CARE VITAL SIGNS MEDICATIONS Unknown Medications RESULTS No Results PROCEDURES No Known procedures INSTRUCTIONS MEDICATIONS ADMINISTERED No Known Medications MEDICAL (GENERAL) HISTORY Type Description Date Medical History Heart Murmur Surgical History Appendectomy 1995 Hospitalization History Appendectomy 1996
--- OUTSIDE RECORDS SUMMARY | 2018-03-07 22:33 | XMS REPORT ---
Author Author ESCOBAR AGNES [facility] Address [address] [place] [address] Care Team Providers Care Shim Plug Cutter Name Role Phone ESCOBARJESUS MITCHELLHANY Unavailable PROBLEMS Type Condition ICD9-CM Code NRT19-JO Code Onset Dates Condition Status SNOMED Code Problem care, first in third trimester Z34.03 Active [id number] ALLERGIES No Information ENCOUNTERS Encounter Location Date Diagnosis [place] [address] [place] [address]79- 1705 Jan, [place] [address] [place] [id number] [place] [address] 86803- 5769 Jan, [place] [address] [place] [id number] [place] [address] 92835- 5693 Dec, [place] [address] [place] [id number] [place] [address] 20137- 7836 Dec, [place] [address] [place] [id number] [place] [address] 19132- 9757 Nov, Diabetes mellitus screening Z13.1 ; 28 weeks gestation of Z3A.28 and care, first in third trimester Z34.03 [place] [address] [place] [address] 14036- 7288 Nov, Encounter for physical examination related to employment Z02.1 [place] [address] [place] [id number] [place] [address] 29220- 6895 October, [place] [address] [place] [id number] [place] [address] 21245- 3972 October, 21 weeks gestation of Z3A.21 ; Evaluate anatomy not seen on prior sonogram Z04.8 and care in second trimester Z34.92 [facility] [address] [address] 12 Sep, 2017 Second trimester Z34.92 and 17 weeks gestation of Z3A.17 [facility] [address] [address] 23 Aug, 2017 [facility] [address] [place] [id number] [place] [address] 04248- 0968 Aug, care in first trimester Z34.91 and 12 weeks gestation of Z3A.12 [facility] [address] [place] [id number] [place] [address] 68358- 9734 15 Jul, 2017 [place] [address] [place] [id number] [place] [address] 31509- 4854 13 Jul, 2017 Tobacco abuse Z72.0 [place] [address] [place] [id number] [place] [address] 85129- 3615 12 Jul, 2017 Normal , first Z34.00 ; Cervical cancer screening Z12.4 and 8 weeks gestation of Z3A.08 [facility] [address] [place] [address] 02 Jul, 2017 Encounter for test Z32.00 [facility] [address] [address] 02 Jul, 2017 [facility] [address] [address] 07 Mar, 2016 Right wrist pain M25.531 and Injury of tendon of right hand , initial encounter S66.901A IMMUNIZATIONS No Known Immunizations SOCIAL HISTORY Never Assessed REASON FOR VISIT Medication Request PLAN OF CARE VITAL SIGNS MEDICATIONS Medication Instructions Dosage Frequency Start Date End Date Duration Status Nicorette 2 MG Mouth/Throat 24 time(s) a day 1 piece as needed Jul, Active RESULTS No Results PROCEDURES No Known procedures INSTRUCTIONS MEDICATIONS ADMINISTERED No Known Medications MEDICAL (GENERAL) HISTORY Type Description Date Medical History Heart Murmur Surgical History Appendectomy 1995 Hospitalization History Appendectomy 1995
--- OUTSIDE RECORDS SUMMARY | 2018-03-07 22:33 | XMS REPORT ---
Author BARBARA Albarran [facility] eClinical[employer] Address Unknown Phone Unavailable Care Team Providers Care Cage Tender Name Role Phone BARBARA MEIER CP Unavailable Allergies, Adverse Reactions, Alerts Substance Reaction Event Type Erythromycin Info Not Available Drug Allergy Problems Problem Type Condition Code Onset Dates Condition Status Assessment Injury of tendon of right hand, initial encounter S66.901A Active Assessment Right wrist pain M25.531 Active Medications Medication Code System Code Instructions Start Date End Date Status Dosage PredniSONE [facility] [id number] 50 MG Orally Once a day Apr 01, 2016 Apr 06, 2016 1 tablet Procedures Procedure Coding System Code Date Office Visit, Est Pt., Level 3 CPT-4 78244 Apr 01, 2016 Vital Signs Date/Time: Apr 01, 2016 Cardiac Monitoring Heart Rate 60 bpm Weight 139.2 lbs Height 64 in BMI 23.89 Index Blood Pressure Diastolic 72 mmHg Blood Pressure Systolic 130 mmHg Results No Known Results Summary Purpose eClinicalWorks Submission
[2018-03-07] MEDS ORDERED: LACTATED RINGERS 1,000 ML IV SCH (23:03)
[2018-03-07] MEDS ORDERED: METOCLOPRAMIDE INJ 10 MG/2 ML (REGLAN) IV PRN (23:15)
[2018-03-07] MEDS ORDERED: EPIDURAL (SUFENTA 0.6MCG/ML BUPIVA 0.125%) 100 ML BAG EPI PRN (23:15)
[2018-03-07] MEDS ORDERED: NALOXONE 0.4 MG/ML 1 ML (NARCAN) VIAL IV PRN ×2 (23:15)
[2018-03-07] MEDS ORDERED: diphenhydrAMINE 50 MG/ML INJ (BENADRYL) IV PRN (23:15)
[2018-03-07] MEDS ORDERED: ONDANSETRON 4 MG/2 ML (SDV) Z0FRAN IV PRN (23:15)
[2018-03-08] VITALS (29 sets, daily range): BP systolic 118–187; BP diastolic 59–135
[2018-03-08] MEDS ORDERED: OXYTOCIN/NORMAL SALINE 500 ML IV ONE ×2 (00:57→03:25)
[2018-03-08] MEDS ORDERED: LIDOCAINE/EPI 2% 1:200,00 (XYLOCAINE) 10 ML VIAL ONE (01:14)
[2018-03-08] MEDS: D5 LR IV SOLUTION 1,000 ML IV SCH (02:13)
[2018-03-08] MEDS ORDERED: fentaNYL INJECTION 100 MCG/2 ML AMP IVP ONE (03:45)
[2018-03-08] MEDS ORDERED: GENTAMICIN IV SCH (04:30)
[2018-03-08] MEDS ORDERED: AMPICILLIN FOR IV USE 2,000 MG in NS (IVPB) 50 ML IV ONE ×4 (04:30)
[2018-03-08] MEDS ORDERED: D5W IV SCH (04:30)
--- NOTE | 2018-03-08 04:41 | OB Labor & Delivery Record ---
Vag Delivery Note Vag Delivery Note Date of Delivery: 03/08/18 Preoperative Diagnosis: Manda Cote is a 32 /Para 1 / 0,Gestational Age (wks)39with 2d Postoperative Diagnosis: Same Surgeon: AGNES CODY Cut Filer: Adelina Ac MS3 Anesthesia: Epidural Delivery Type: Spontaneous vaginal delivery Findings: Viable male , apgars 1/5/7, weight 3080 grams Lacerations: partial third degree perineal, left perineal laceration Intact placenta with 3 vessel cord. Nuchal cord x 1 reduced, body cord delivered through, no shoulder dystocia Cytotec 800 mcg placed for hemorrhage prophylaxis Estimated Blood Loss: 250 ml Complications: None Condition: Stable Description of Procedure: The patient is a G1 who presented in active labor after SROM at home. She was admitted and informed consent was obtained. Her labor course was remarkable for meconium stained fluid and fever just prior to delivery. She progressed to complete dilatation and began to push. She was then set up for delivery. The infant's head was delivered atraumatically in the JORDON position. The shoulders and remainder of the 's body were then delivered without difficulty. Upon delivery, the infant was nonvigorous so due to meconium staining, the cord was doubly clamped and cut and the was handed off to the pediatric staff. An intact placenta with 3- vessel cord delivered via Mary and there was found to be minimal bleeding.~ Vigorous fundal massage was performed and the fundus was found to be firm. IV oxytocin was given. Examination of the vagina and perineum revealed a partial third degree laceration. Anal sphincter reinforced with two 2-0 vicryl stitches. Second degree laceration then repaired in the usual fashion with 3-0 rapide suture. Following the repair, sponge, instrument and needle counts were correct. Mom and baby were both in stable condition in the labor suite. Given fever and third degree repair, ampicillin and gentamicin x 1 ordered. Vitals - Labs Vital Signs - I&O Vital Signs Date Time Temp Pulse Resp B/P (MAP) Pulse Ox O2 Delivery O2 Flow Rate FiO2 03/08/18 04:00 100.2 96 18 137/66 (89) Room Air 03/08/18 03:45 96 18 133/63 (86) Room Air 03/08/18 03:30 100.1 103 18 131/66 (87) Room Air 03/08/18 03:15 100.8 102 18 131/77 (95) Room Air 03/08/18 03:09 107 18 140/74 (96) Room Air 03/08/18 02:53 101.3 110 18 133/63 (86) Room Air 03/08/18 02:40 139 18 140/71 (94) Room Air 03/08/18 02:23 120 18 185/135 (152) Room Air 03/08/18 02:09 146 18 187/134 (151) Room Air 03/08/18 01:39 130 18 134/100 (111) 99 Room Air 03/08/18 01:25 100.3 91 18 162/72 (102) 99 Room Air 03/08/18 01:10 105 18 132/76 (94) 99 Room Air 03/08/18 00:54 105 18 140/66 (90) 99 Room Air 03/08/18 00:40 93 18 140/74 (96) 99 Room Air 03/07/18 22:00 Non Rebreather 15.00 03/07/18 21:30 85 18 122/60 (80) I & O 03/08/18 07:00 Intake Total 1000 ml Output Total 0 ml Balance 1000 ml Labs Laboratory Tests 03/07/18 21:30: White Blood Count 21.8H, Red Blood Count 3.92L, Hemoglobin 13.1, Hematocrit 36, Mean Corpuscular Volume 92, Mean Corpuscular Hemoglobin 33, Mean Corpuscular Hemoglobin Concent 36, Red Cell Distribution Width 12.9, Platelet Count 366, Mean Platelet Volume 9.9, Neutrophils (%) (Auto) 84H, Lymphocytes (%) (Auto) 9L , Monocytes (%) (Auto) 7, Eosinophils (%) (Auto) 0, Basophils (%) (Auto) 0, Neutrophils # (Auto) 18.2H, Lymphocytes # (Auto) 2.0, Monocytes # (Auto) 1.5H, Eosinophils # (Auto) 0.0, Basophils # (Auto) 0.0, Neutrophils % (Manual) 63, Lymphocytes % (Manual) 13, Monocytes % (Manual) 6, Eosinophils % (Manual) 0, Basophils % (Manual) 0, Band Neutrophils 18, Blood Morphology Comment NORMAL AGNES CODY MD Mar 08, 2018 04:41
[2018-03-08] MEDS ORDERED: IBUPROFEN 600 MG (MOTRIN) TAB PO ONE (06:56)
[2018-03-08] MEDS: IBUPROFEN 600 MG (MOTRIN) TAB PO SCH ×3 (06:58→20:22)
[2018-03-08] MEDS ORDERED: OXYTOCIN/NORMAL SALINE 500 ML IV SCH (08:16)
[2018-03-08] MEDS ORDERED: D5W IV NR (08:25)
[2018-03-08] MEDS ORDERED: GENTAMICIN IV NR (08:25)
[2018-03-08] MEDS ORDERED: HYDROcodone/APAP 5 MG/325 MG (LORTAB) TAB PO PRN (08:30)
[2018-03-08] MEDS ORDERED: WITCH HAZEL(TUCKS) 40 EA JAR TOP PRN (08:30)
[2018-03-08] MEDS ORDERED: BENZOCAINE/MENTHOL (DERMOPLAST) 56 ML CAN TP PRN (08:30)
[2018-03-08] MEDS: DOCUSATE SODIUM 100 MG (COLACE) CAP PO SCH ×2 (08:45→20:22)
--- NOTE | 2018-03-08 13:44 | Anesthesia-Regional Post-Op ---
Regional Patient Condition Mental Status: Alert, Oriented x3 Circulation: Same as Pre-Op Headache: Absent Sensation: Full Recovery Motor Block: Absent Post Op Complications Complications None Follow Up Care/Instructions Patient Instructions None needed. Anesthesia/Patient Condition Patient is doing well, no complaints, stable vital signs, no apparent adverse anesthesia problems. No complications reported per nursing. JAYSON FIGUEREDO CRNA Mar 08, 2018 13:44
[2018-03-09 02:30] VITALS: BP 112/70
[2018-03-09] MEDS: IBUPROFEN 600 MG (MOTRIN) TAB PO SCH ×2 (02:30→10:00)
[2018-03-09 05:59] LABS: BASOPHILS % (AUTO) 0 % (0-10); EOSINOPHILS # (AUTO) 0.1 10^3/uL (0.0-0.3); EOSINOPHILS % (AUTO) 1 % (0-10); HEMATOCRIT 30 % (35-52); HEMOGLOBIN 10.5 G/DL (11.5-16.0); LYMPHOCYTES # (AUTO) 2.2 X 10^3 (1.0-4.0); LYMPHOCYTES % (AUTO) 14 % (12-44); MEAN CORPUSCULAR HEMOGLOBIN 33 PG (25-34); MEAN CORPUSCULAR HGB CONC 35 G/DL (32-36); MEAN CORPUSCULAR VOLUME 96 FL (80-99); MEAN PLATELET VOLUME 9.8 FL (7.4-10.4); MONOCYTES # (AUTO) 1.2 X 10^3 (0.0-1.0); MONOCYTES % (AUTO) 8 % (0-12); NEUTROPHILS # (AUTO) 12.8 X 10^3 (1.8-7.8); NEUTROPHILS % (AUTO) 78 % (42-75); PLATELET COUNT 270 10^3/uL (130-400); RED BLOOD COUNT 3.14 10^6/uL (4.35-5.85); RED CELL DISTRIBUTION WIDTH 12.7 % (10.0-14.5); WHITE BLOOD COUNT 16.4 10^3/uL (4.3-11.0)
[2018-03-09 08:00] VITALS: BP 134/85
[2018-03-09 12:06] VITALS: BP 134/80
[2018-03-09] MEDS ORDERED: ACHD5005 PO ×2 (12:10)
[2018-03-09] MEDS ORDERED: IBUP-844 PO ×2 (12:10)
[2018-03-09] MEDS ORDERED: DOCU100T2 PO ×2 (12:13)
--- NOTE | 2018-03-09 12:13 | Discharge Instructions ---
Discharge Inst-Women's Serv Depart Medications New, Converted or Re-Newed RX: RX on Chart New Medications: Docusate Sodium (Docusate Sodium) 100 Mg Tablet 100 MG PO DAILY, #30 TAB 0 Refills Hydrocodone Bit/Acetaminophen (Hydrocodone/Acetaminophen 5/325mg Tablet) 1 Tab Tab 1 TAB PO Q4H PRN for PAIN-SEVERE, #15 TAB 0 Refills Ibuprofen (Ibu) 600 Mg Tablet 600 MG PO Q6H PRN for PAIN-MODERATE, #60 TAB 0 Refills Continued Medications: Vit/Iron Fumarate/FA ( Tablet) 1 Each Tablet 1 EACH PO DAILY, TAB Discontinued Medications: Ranitidine HCl (Ranitidine HCl) 150 Mg Tablet 150 MG PO DAILY, TAB Follow Up/Instructions Goal/Follow Up: Follow up with Dr. Reardon in 6 weeks for visit. Activity Activity: Activity as Tolerated (avoid strenuous activity x 6 weeks) Driving Instructions: You May Drive (do not drive while on sedating medication) NO SMOKING: NO SMOKING Nothing Inside Vagina: No Douching, No [place], No Tampons Diet Discharge Diet: Regular Diet Symptoms to Report to : Swelling Increased, Bleeding Excessive, Constipation (Persistant), Fever Over 101 Degrees F, Pain/Pressure in Chest, Vaginal Bleeding Increase, Cramps in Feet or Legs, Vaginal Discharge Foul, Dizziness/ Fainting, Nausea/Vomiting, Shortness of Breath For Any Problems or Questions: Contact Your Physician Copies To 1: AGNES REARDON MD, BETHANY N MD Mar 09, 2018 12:12 pm
--- NOTE | 2018-03-09 17:16 | Discharge Summary ---
Diagnosis/Chief Complaint Date of Admission Mar 07, 2018 at 22:28 Date of Discharge Mar 09, 2018 at 14:30 Admission Diagnosis Admission Diagnosis Spontaneous rupture of membranes Term intrauterine 39 weeks gestation Discharge Diagnosis s/p spontaneous vaginal delivery with partial third degree laceration repair- uncomplicated course chorioamnionitis- febrile to 100.3 just before delivery and above 101 just after. Given one dose of ampicillin and gentamicin and had no further fever asymptomatic anemia Chief Complaint/HPI Chief Complaint/HPI 32 yo G1 presented to Labor and Delivery after spontaneous rupture of membranes at home just before arrival. Discharge Summary-Simple/Stand Discharge Physical Examination Allergies: Coded Allergies: erythromycin base (Verified Allergy, Unknown, 03/07/18) Vitals & I&Os Vital Sign - Last 12Hours Date Time Temp Pulse Resp B/P (MAP) Pulse Ox O2 Delivery O2 Flow Rate FiO2 03/09/18 12:06 97.4 103 18 134/80 (98) 97 Room Air 03/08/18 00:30 10.00 General Appearance: Alert, No Acute Distress Respiratory: Clear to Auscultation, Normal Air Movement Cardiovascular: Regular Rate, No Murmurs Psych/Mental Status: Mental Status NL Hospital Course See final discharge diagnosis. Labs Laboratory Tests Test 03/07/18 21:30 03/09/18 05:32 Range/Units White Blood Count 21.8 H 16.4 H 4.3-11.0 10^3/uL Red Blood Count 3.92 L 3.14 L 4.35-5.85 10^6/uL Hemoglobin 13.1 10.5 L 11.5-16.0 G/DL Hematocrit 36 30 L 35-52 % Mean Corpuscular Volume 92 96 80-99 FL Mean Corpuscular Hemoglobin 33 33 25-34 PG Mean Corpuscular Hemoglobin Concent 36 35 32-36 G/DL Red Cell Distribution Width 12.9 12.7 10.0-14.5 % Platelet Count 366 270 130-400 10^3/uL Mean Platelet Volume 9.9 9.8 7.4-10.4 FL Neutrophils (%) (Auto) 84 H 78 H 42-75 % Lymphocytes (%) (Auto) 9 L 14 12-44 % Monocytes (%) (Auto) 7 8 0-12 % Eosinophils (%) (Auto) 0 1 0-10 % Basophils (%) (Auto) 0 0 0-10 % Neutrophils # (Auto) 18.2 H 12.8 H 1.8-7.8 X 10^3 Lymphocytes # (Auto) 2.0 2.2 1.0-4.0 X 10^3 Monocytes # (Auto) 1.5 H 1.2 H 0.0-1.0 X 10^3 Eosinophils # (Auto) 0.0 0.1 0.0-0.3 10^3/uL Basophils # (Auto) 0.0 0.0 0.0-0.1 10^3/uL Neutrophils % (Manual) 63 % Lymphocytes % (Manual) 13 % Monocytes % (Manual) 6 % Eosinophils % (Manual) 0 % Basophils % (Manual) 0 % Band Neutrophils 18 % Blood Morphology Comment NORMAL Discharge Instructions to patient/family Please see electronic discharge instructions given to patient. Discharge Medications Reviewed and agree with Discharge Medication list on patient's Discharge Instruction sheet Clinical Quality Measures DVT/VTE Risk/Contraindication: Risk Factor Score Per Nursin RFS Level Per Nursing on Admit: 2=Moderate Copy Copies To 1: AGNES CODY MD, BETHANY N MD Mar 09, 2018 17:16
[2018-03-09] MEDS ORDERED: ONDA4TAB8 SL (23:38)
[2018-03-09] MEDS ORDERED: SULF1TAB35 PO (23:54)
== END 2018-03-09 14:30 | disposition home or self-care (01) | DRG 774 ==
LOC: WSo 20:51 → LDRP 20:51 → WSo 21:11 → LDRP 22:28
PROVIDERS: ADMIT Family Medicine; ATTEND Family Medicine
PROC: 0DQR0ZZ Repair Anal Sphincter, Open Approach (ICD-10-PCS; principal; 2018-03-08)
PROC: 10E0XZZ Delivery of Products of Conception, External Approach (ICD-10-PCS; 2018-03-08)
DX: O99.334 Smoking (tobacco) complicating childbirth (principal); O75.2 Pyrexia during labor, not elsewhere classified; O77.0 Labor and delivery complicated by meconium in amniotic fluid; O70.20 Third degree perineal laceration during delivery, unspecified; O69.81X0 Labor and delivery complicated by cord around neck, without compression, not applicable or unspecified; Z3A.39 39 weeks gestation of pregnancy; Z37.0 Single live birth; F17.210 Nicotine dependence, cigarettes, uncomplicated
CPT/HCPCS: 36415; 85007; 85025; 85027; 86850; 86900; 86901; 88307; 99212

== ENCOUNTER 2018-03-09 21:06 | Emergency (ER) | payer OTHER ==
[~2018-03-09] VITALS: Ht 162.6 cm; Wt 76.9 kg
[~2018-03-09 21:06] MED LIST: ACHD5005 PO; DOCU100T2 PO; IBUP-844 PO; PREN-37 PO; RANI150T11 PO
[2018-03-09 21:59] LABS: BASOPHILS % (AUTO) 0 % (0-10); EOSINOPHILS % (AUTO) 0 % (0-10); HEMATOCRIT 29 % (35-52); HEMOGLOBIN 10.4 G/DL (11.5-16.0); LYMPHOCYTES # (AUTO) 1.1 X 10^3 (1.0-4.0); LYMPHOCYTES % (AUTO) 7 % (12-44); MEAN CORPUSCULAR HEMOGLOBIN 34 PG (25-34); MEAN CORPUSCULAR HGB CONC 36 G/DL (32-36); MEAN CORPUSCULAR VOLUME 95 FL (80-99); MEAN PLATELET VOLUME 9.4 FL (7.4-10.4); MONOCYTES # (AUTO) 0.9 X 10^3 (0.0-1.0); MONOCYTES % (AUTO) 6 % (0-12); NEUTROPHILS # (AUTO) 12.5 X 10^3 (1.8-7.8); NEUTROPHILS % (AUTO) 86 % (42-75); PLATELET COUNT 291 10^3/uL (130-400); RED BLOOD COUNT 3.08 10^6/uL (4.35-5.85); RED CELL DISTRIBUTION WIDTH 12.6 % (10.0-14.5); WHITE BLOOD COUNT 14.5 10^3/uL (4.3-11.0)
[2018-03-09 22:14] LABS: PROTHROMBIN TIME PATIENT 12.9 SEC (12.2-14.7)
[2018-03-09 22:18] LABS: ALANINE AMINOTRANSFERASE 121 U/L (0-55); ALBUMIN 3.2 GM/DL (3.2-4.5); ALKALINE PHOSPHATASE 299 U/L (40-136); AMYLASE 33 U/L (25-125); BILIRUBIN,TOTAL 0.9 MG/DL (0.1-1.0); BUN/CREATININE RATIO 13; CALCIUM 9.2 MG/DL (8.5-10.1); CARBON DIOXIDE 18 MMOL/L (21-32); CHLORIDE 106 MMOL/L (98-107); CREATININE SERUM 0.64 MG/DL (0.60-1.30); GFR ESTIMATED > 60; GLUCOSE 104 MG/DL (70-105); LIPASE 29 U/L (8-78); MAGNESIUM 1.7 MG/DL (1.8-2.4); POTASSIUM 3.4 MMOL/L (3.6-5.0); SODIUM 138 MMOL/L (135-145); TOTAL PROTEIN 6.2 GM/DL (6.4-8.2)
[2018-03-09 22:22] LABS: BAND NEUTROPHILS 3 %; BASOPHILS % (MANUAL) 0 %; EOSINOPHILS % (MANUAL) 0 %; LYMPHOCYTES % (MANUAL) 4 %; MONOCYTES % (MANUAL) 4 %; NEUTROPHILS % (MANUAL) 89 %; RBC MORPH NORMAL
[2018-03-09 22:24] LABS: MYOGLOBIN SERUM 62.7 NG/ML (10.0-92.0)
--- NOTE | 2018-03-09 22:51 | ED Chest Pain ---
General Chief Complaint: Abdominal/GI Problems Stated Complaint: ABD/CHEST REGION PAIN, RECENTLY GAVE Nursing Triage Note: states that she gave Wed. Stated taht she was a vaginal delivery, had chori, and meconium delivery. States she was feeling well today and asked to be dscharged. After going home, began having upper abd pain going under ribs spreading out. nausea. Has had zantac and antacid with no relief. sl sob, no pain in calves, no cp. no urinary sx, normal bm today. no clots passed. changing pads every 2-3 hours, light flow. uterus -2 and firm Nursing Sepsis Screen: No Definite Risk Source: patient Exam Limitations: no limitations History of Present Illness Date Seen by Provider: Mar 09, 2018 Time Seen by Provider: 21:30 Initial Comments Patient is a 32-year-old female who presents to the emergency room with complaints of upper abdominal pain, chest pain, nausea, mild shortness of breath , pain that radiates into her ribs. She reports that she had a vaginal delivery on 03/07/18 in [facility]. She also reports that she had chorioamnionitis and meconium delivery. She denies any calf pain, calf swelling, normal bowel movements, no urinary tract infection symptoms, normal bowel movements, no excessive bleeding, reports vaginal bleeding is slowing down. She reports that she was discharged from the hospital today and the pain started shortly after she got home today around 1700. She reports taking ranitidine and Tums with minimal relief. Timing/Duration: 4-6 hours Severity/Quality: mild, aching Location: central Radiation: other (RIBS) Prior CP/Workup: no prior chest pain Modifying Factors: improves with antacids Associated Symptoms: denies symptoms Allergies and Home Medications Allergies Coded Allergies: erythromycin base (Verified Allergy, Unknown, 03/09/18) Home Medications Docusate Sodium 100 Mg Tablet, 100 MG PO DAILY Prescribed by: AGNES CODY on 03/09/18 1213 Hydrocodone Bit/Acetaminophen 1 Tab Tab, 1 TAB PO Q4H PRN for PAIN-SEVERE Prescribed by: AGNES CODY on 03/09/18 1210 Ibuprofen 600 Mg Tablet, 600 MG PO Q6H PRN for PAIN-MODERATE Prescribed by: AGNES CODY on 03/09/18 1210 Ondansetron 4 Mg Tab.rapdis, 4 MG SL Q4H PRN for NAUSEA/VOMITING-1ST LINE Prescribed by: WILBUR MANCERA on 03/09/18 2338 Vit/Iron Fumarate/FA 1 Each Tablet, 1 EACH PO DAILY, (Reported) Sulfamethoxazole/Trimethoprim 1 Each Tablet, 1 EACH PO BID Prescribed by: WILBUR MANCERA on 03/09/18 2354 Patient Home Medication List Home Medication List Reviewed: Yes Review of Systems Review of Systems Constitutional: see HPI; No chills, No fever Respiratory: See HPI, Shortness of Air Cardiovascular: See HPI, Chest Pain Gastrointestinal: See HPI, Abdominal Pain (epigastric pain), Nausea All Other Systems Reviewed Negative Unless Noted: Yes Past Msgeuhd-Phlofd-Dbujdd Hx Past Med/Social Hx: Reviewed Nursing Past Med/Soc Hx Patient Social History Alcohol Use: Denies Use Recreational Drug Use: No Type Used: Cigarettes Recent Foreign Travel: No Contact w/Someone Who Travel: No Recent Infectious Disease Expo: No Recent Hopitalizations: Yes (gave 03/07/18) Physical Abuse: No Sexual Abuse: No Mistreated: No Fear: No Immunizations Up To Date Tetanus Booster (TDap): Less than 5yrs Seasonal Allergies Seasonal Allergies: Yes Past Medical History Surgeries: Yes Appendectomy Respiratory: No Cardiac: No Neurological: No Female Reproductive Disorders: Denies Sexually Transmitted Disease: No HIV/AIDS: No Genitourinary: No Gastrointestinal: No Musculoskeletal: No Endocrine: No HEENT: No Cancer: No Psychosocial: No Integumentary: No Blood Disorders: No Adverse Reaction/Blood Tranf: No Family Medical History Reviewed Nursing Family Hx Dementia (Mother) Diabetes mellitus FH: Meniere's disease (Sister) FH: brain cancer (Mother) FH: depression (Mother) Hypertension (Father) Seizure disorder (Father) Physical Exam Vital Signs Vital Signs - First Documented 03/09/18 21:18 Temp 98.2 Pulse 90 Resp 18 B/P (MAP) 146/74 (98) Pulse Ox 99 Capillary Refill : Less Than 3 Seconds Height, Weight, BMI Height: 5'4.00" Weight: 169lbs. 10.0oz. 76.033787js; 29.1 BMI Method:Stated General Appearance: No Apparent Distress, WD/WN Neck: Full Range of Motion, Normal Inspection, Non Tender Respiratory: Chest Non Tender, Lungs Clear, Normal Breath Sounds, No Accessory Muscle Use, No Respiratory Distress Cardiovascular: Regular Rate, Rhythm, No Edema, No Gallop, No JVD, No Murmur, Normal Peripheral Pulses Gastrointestinal: Normal Bowel Sounds, No Organomegaly, No Pulsatile Mass, Non Tender, Soft, Other (uterus was 2 fingerbreadths below the umbilicus and firm. Patient was no tender on exam with deep palpation. ) Neurologic/Psychiatric: Alert, Oriented x3, Normal Mood/Affect Skin: Normal Color, Warm/Dry Progress/Results/Core Measures Results/Orders Lab Results Laboratory Tests Test 03/09/18 21:52 03/09/18 23:19 Range/Units White Blood Count 14.5 H 4.3-11.0 10^3/uL Red Blood Count 3.08 L 4.35-5.85 10^6/uL Hemoglobin 10.4 L 11.5-16.0 G/DL Hematocrit 29 L 35-52 % Mean Corpuscular Volume 95 80-99 FL Mean Corpuscular Hemoglobin 34 25-34 PG Mean Corpuscular Hemoglobin Concent 36 32-36 G/DL Red Cell Distribution Width 12.6 10.0-14.5 % Platelet Count 291 130-400 10^3/uL Mean Platelet Volume 9.4 7.4-10.4 FL Neutrophils (%) (Auto) 86 H 42-75 % Lymphocytes (%) (Auto) 7 L 12-44 % Monocytes (%) (Auto) 6 0-12 % Eosinophils (%) (Auto) 0 0-10 % Basophils (%) (Auto) 0 0-10 % Neutrophils # (Auto) 12.5 H 1.8-7.8 X 10^3 Lymphocytes # (Auto) 1.1 1.0-4.0 X 10^3 Monocytes # (Auto) 0.9 0.0-1.0 X 10^3 Eosinophils # (Auto) 0.0 0.0-0.3 10^3/uL Basophils # (Auto) 0.0 0.0-0.1 10^3/uL Neutrophils % (Manual) 89 % Lymphocytes % (Manual) 4 % Monocytes % (Manual) 4 % Eosinophils % (Manual) 0 % Basophils % (Manual) 0 % Band Neutrophils 3 % Blood Morphology Comment NORMAL Prothrombin Time 12.9 12.2-14.7 SEC INR Comment 1.0 0.8-1.4 Activated Partial Thromboplast Time 25 24-35 SEC Sodium Level 138 135-145 MMOL/L Potassium Level 3.4 L 3.6-5.0 MMOL/L Chloride Level 106 98-107 MMOL/L Carbon Dioxide Level 18 L 21-32 MMOL/L Anion Gap 14 5-14 MMOL/L Blood Urea Nitrogen 8 7-18 MG/DL Creatinine 0.64 0.60-1.30 MG/DL Estimat Glomerular Filtration Rate > 60 BUN/Creatinine Ratio 13 Glucose Level 104 70-105 MG/DL Calcium Level 9.2 8.5-10.1 MG/DL Corrected Calcium 9.8 8.5-10.1 MG/DL Magnesium Level 1.7 L 1.8-2.4 MG/DL Total Bilirubin 0.9 0.1-1.0 MG/DL Aspartate Amino Transf (AST/SGOT) 174 H 5-34 U/L Alanine Aminotransferase (ALT/SGPT) 121 H 0-55 U/L Alkaline Phosphatase 299 H 40-136 U/L Myoglobin 62.7 10.0-92.0 NG/ML Troponin I < 0.30 <0.30 NG/ML Total Protein 6.2 L 6.4-8.2 GM/DL Albumin 3.2 3.2-4.5 GM/DL Amylase Level 33 25-125 U/L Lipase 29 8-78 U/L Urine Color YELLOW Urine Clarity SLIGHTLY CLOUDY Urine pH 6.5 5-9 Urine Specific Velma 1.010 L 1.016-1.022 Urine Protein 2+ H NEGATIVE Urine Glucose (UA) NEGATIVE NEGATIVE Urine Ketones NEGATIVE NEGATIVE Urine Nitrite NEGATIVE NEGATIVE Urine Bilirubin NEGATIVE NEGATIVE Urine Urobilinogen 1 NORMAL MG/DL Urine Leukocyte Esterase 3+ H NEGATIVE Urine RBC (Auto) 5+ H NEGATIVE Urine RBC >100 H /HPF Urine WBC 5-10 H /HPF Urine Squamous Epithelial Cells 0-2 /HPF Urine Crystals NONE /LPF Urine Bacteria MODERATE H /HPF Urine Casts NONE /LPF Urine Mucus NEGATIVE /LPF Urine Culture Indicated YES My Orders Orders - WILBUR MANCERA Comprehensive Metabolic Panel (03/09/18 21:29) Lipase (03/09/18 21:29) Amylase (03/09/18 21:29) Ua Culture If Indicated (03/09/18 21:29) Saline Lock/Iv-Start (03/09/18 21:29) Cbc With Automated Diff (03/09/18 21:29) Magnesium (03/09/18 21:45) Chest 1 View, Ap/Pa Only (03/09/18 21:45) Ekg Tracing (03/09/18 21:45) Cardiac Profile 1 (03/09/18 21:45) Myoglobin Serum (03/09/18 21:45) Protime With Inr (03/09/18 21:45) Partial Thromboplastin Time (03/09/18 21:45) O2 (03/09/18 21:45) Monitor-Rhythm Ecg Trace Only (03/09/18 21:45) Ct Angio Chest W (03/09/18 21:46) Manual Differential (03/09/18 21:52) Iohexol Injection (Omnipaque 350 Mg/Ml 1 (03/09/18 23:45) Sodium Chloride Flush (Catheter Flush Sy (03/09/18 23:45) Urine Culture (03/09/18 23:19) Rx-Ondansetron Po (Rx-Zofran Po) (03/09/18 23:51) Rx-Ondansetron Po (Rx-Zofran Po) (03/09/18 23:52) Sulfamethoxazole/Trimet Ds Tab (Bactrim (03/10/18 00:00) Medications Given in ED Vital Signs/I&O 03/09/18 03/10/18 21:18 00:00 Temp 98.2 98.3 Pulse 90 82 Resp 18 13 B/P (MAP) 146/74 (98) 134/72 Pulse Ox 99 100 Blood Pressure Mean: 98 Progress Progress Note : Time: 23:20 Progress Note I have seen and evaluated the patient. She reports her pain is completely resolved at this time. She reports that her pain medications have been making her nauseated and causing vomiting/heartburn and she reports taking Tums prior to arrival and thinks this has helped her pain. I have informed her of laboratory studies and imaging studies and she agrees with plan of care, plans for discharge, return precautions were given, Initial ECG Impression Date: Mar 09, 2018 Initial ECG Impression Time: 21:57 Initial ECG Rate: 79 Initial ECG Rhythm: Normal Sinus Initial ECG Intervals: Normal Initial ECG Impression: Normal Initial ECG Comparisson: No Previous ECG Available Comment Dr. Sevilla agrees with above. Diagnostic Imaging Diagonstic Imaging: Xray, CT Plain Films/CT/US/NM/MRI: chest Comments statrad: Impression: 1. Negative a CT chest with no CTA evidence of pulmonary thromboemboli. 2. 6 mm nonobstructing stone in the left lower pole left kidney. No evidence of hydronephrosis. NAME: RENÉE [facility]COSTA [facility] REC#: [id number] PT STATUS: REG ER : 1985 PHYSICIAN: WILBUR MANCERA ADMIT DATE: 03/09/18/ER Signed Date of Exam: 03/09/18 CHEST 1 VIEW, AP/PA ONLY CHEST 1 VIEW, AP/PA ONLY Indication: Chest pain Comparison: None available. Findings: No focal airspace disease in the visualized lungs. Please note that the posterior lower lobes are poorly evaluated by portable radiography. No pleural effusion or pneumothorax. Normal cardiomediastinal silhouette. Impression: No acute cardiopulmonary process by portable radiography. Dictated by: Dictated on workstation # [id number] Dict: 03/10/18942 Trans: 03/10/18943 Interpreted by: MALLORY POWER MD Electronically signed by: MALLORY POWER MD 03/10/18943 NAME: RENÉE ACOSTA [facility] REC#: [id number] PHYSICIAN: WILBUR MANCERA CC: WILBUR MANCERA; MALLORY POWER MD Page 2 of 2 RADIOLOGY REPORT VIA [place], [place] CC: WILBUR MANCERA; MALLORY POWER MD Page 1 of 1 RADIOLOGY REPORT NAME: RENÉE ACOSTA [facility] REC#: [id number] PT STATUS: REG ER : 1985 PHYSICIAN: WILBUR MANCERA ADMIT DATE: 03/09/18/ER Signed Date of Exam: 03/09/18 CT ANGIO CHEST W PROCEDURE: CT angiography of the chest with contrast. TECHNIQUE: Multiple contiguous axial images were obtained through the chest after uneventful bolus administration of intravenous contrast. Reconstructed CTA MIP acquisitions were also performed. INDICATION: Chest pain. COMPARISON: None available. FINDINGS: Vasculature: No pulmonary emboli. No CT evidence of pulmonary hypertension or right ventricular strain. Thoracic aorta is normal in caliber. No aortic dissection or pseudoaneurysm. Heart and mediastinum: Visualized thyroid is normal. No supraclavicular, axillary, or intra-thoracic lymphadenopathy. The heart is normal in size without pericardial effusion. Pleura: No pleural effusion or pneumothorax. Lungs and airway: No endoluminal lesion in the trachea or central bronchi. No pulmonary mass, nodule or consolidation. Upper abdomen: The gallbladder is mildly distended with questionable gallbladder wall thickening. No biliary duct dilatation. A 6 mm nonobstructing stone in the lower pole of the left kidney. Partially imaged uterine fundus in the upper abdomen compatible with recent . Musculoskeletal: No concerning osseous lesion. IMPRESSION: 1. No acute cardiopulmonary process. Specifically, no pulmonary emboli or acute aortic syndrome. 2. Questionable gallbladder wall thickening. Consider right upper quadrant ultrasound for further characterization if there is clinical concern for acute cholecystitis. 3. There is a 6 mm nonobstructing stone in the lower pole of the left kidney. 4. Findings are in agreement with the preliminary report. Dictated by: Dictated on workstation # [id number] Dict: 03/10/18 0944 Trans: 03/10/18 1449 Interpreted by: MALLORY POWER MD Electronically signed by: MALLORY POWER MD 03/10/18 1449 Reviewed: Reviewed by Me Departure Impression Primary Impression: Nausea alone Additional Impressions: pain Chest pain Urinary tract infection Disposition: 01 HOME, SELF-CARE Condition: Stable/Unchanged Departure-Patient Inst. Decision time for Depature: 23:28 Referrals: AGNES CODY MD (PCP/Family) Primary Care Physician Patient Instructions: Chest Pain That Is Not Caused by the Heart (DC) Add. Discharge Instructions: Continue your home medications previously prescribed. Follow-up with Dr. Cody within 1 week for recheck. Return back to the emergency room for any worsening chest pain, shortness of breath, symptoms, or any other concerns as needed. All discharge instructions reviewed with patient and/or family. Voiced understanding. Scripts Sulfamethoxazole/Trimethoprim (Bactrim Ds Tablet) 1 Each Tablet 1 EACH PO BID for 7 Days, #14 TAB Prov: WILBUR MANCERA 03/09/18 Ondansetron (Zofran Odt) 4 Mg Tab.rapdis 4 MG SL Q4H PRN for NAUSEA/VOMITING-1ST LINE, #14 TAB Prov: WILBUR MANCERA 03/09/18 WILBUR MANCERA Mar 09, 2018 22:51
[2018-03-09 23:36] LABS: BILIRUBIN,URINE NEGATIVE (NEGATIVE); CLARITY,URINE SLIGHTLY CLOUDY; COLOR,URINE YELLOW; GLUCOSE, URINE (UA) NEGATIVE (NEGATIVE); KETONES,URINE NEGATIVE (NEGATIVE); LEUKOCYTE ESTERASE ,URINE 3+ (NEGATIVE); NITRITE,URINE NEGATIVE (NEGATIVE); PH,URINE 6.5 (5-9); PROTEIN,URINE 2+ (NEGATIVE); UROBILINOGEN,URINE 1 MG/DL (NORMAL)
[2018-03-09] MEDS ORDERED: ONDA4TAB8 SL (23:38)
[2018-03-09] MEDS ORDERED: CATHETER FLUSH 10 ML SYR IV PRN (23:45)
[2018-03-09] MEDS ORDERED: IOHEXOL 350 MG/ML 150 ML (OMNIPAQUE 350) VIAL IV ONE (23:45)
[2018-03-09 23:48] LABS: BACTERIA,URINE MODERATE /HPF; RBC,URINE >100 /HPF; SQUAMOUS EPITHELIAL CELL,UR 0-2 /HPF
[2018-03-09] MEDS ORDERED: RX-ONDANSETRON 4 MG ODT (ZOFRAN) PPK #4 PO STA ×2 (23:51→23:52)
[2018-03-09] MEDS ORDERED: SULF1TAB35 PO (23:54)
[2018-03-10] VITALS: BP 134/72
[2018-03-10] MEDS ORDERED: TRIM/SULFAMETH 160/800 (SEPTRA DS) TAB PO ONE
--- NOTE | 2018-03-10 09:46 | Diagnostic Imaging Report ---
CHEST 1 VIEW, AP/PA ONLY Indication: Chest pain Comparison: None available. Findings: No focal airspace disease in the visualized lungs. Please note that the posterior lower lobes are poorly evaluated by portable radiography. No pleural effusion or pneumothorax. Normal cardiomediastinal silhouette. Impression: No acute cardiopulmonary process by portable radiography. Dictated by: Dictated on workstation # [id number]
--- NOTE | 2018-03-10 09:56 | Diagnostic Imaging Report ---
PROCEDURE: CT angiography of the chest with contrast. TECHNIQUE: Multiple contiguous axial images were obtained through the chest after uneventful bolus administration of intravenous contrast. Reconstructed CTA MIP acquisitions were also performed. INDICATION: Chest pain. COMPARISON: None available. FINDINGS: Vasculature: No pulmonary emboli. No CT evidence of pulmonary hypertension or right ventricular strain. Thoracic aorta is normal in caliber. No aortic dissection or pseudoaneurysm. Heart and mediastinum: Visualized thyroid is normal. No supraclavicular, axillary, or intra-thoracic lymphadenopathy. The heart is normal in size without pericardial effusion. Pleura: No pleural effusion or pneumothorax. Lungs and airway: No endoluminal lesion in the trachea or central bronchi. No pulmonary mass, nodule or consolidation. Upper abdomen: The gallbladder is mildly distended with questionable gallbladder wall thickening. No biliary duct dilatation. A 6 mm nonobstructing stone in the lower pole of the left kidney. Partially imaged uterine fundus in the upper abdomen compatible with recent . Musculoskeletal: No concerning osseous lesion. IMPRESSION: 1. No acute cardiopulmonary process. Specifically, no pulmonary emboli or acute aortic syndrome. 2. Questionable gallbladder wall thickening. Consider right upper quadrant ultrasound for further characterization if there is clinical concern for acute cholecystitis. 3. There is a 6 mm nonobstructing stone in the lower pole of the left kidney. 4. Findings are in agreement with the preliminary report. Dictated by: Dictated on workstation # [id number]
== END 2018-03-10 | disposition home or self-care (01) ==
LOC: EDUNIT# 21:06 → ER 21:08
DX: O99.89 Other specified diseases and conditions complicating pregnancy, childbirth and the puerperium (principal); R11.0 Nausea; R10.10 Upper abdominal pain, unspecified; R07.9 Chest pain, unspecified; O86.20 Urinary tract infection following delivery, unspecified; Z88.0 Allergy status to penicillin; Z90.89 Acquired absence of other organs; Z80.8 Family history of malignant neoplasm of other organs or systems
CPT/HCPCS: 36415; 71045; 71275; 80053; 81000; 82150; 83690; 83735; 83874; 84484; 85007; 85027; 85610; 85730; 87088; 93005; 93041

== ENCOUNTER → 2018-04-02 | Outpatient (CLI) | payer OTHER ==
[~2018-04-02] MED LIST changes: +ONDA4TAB8 SL; +SULF1TAB35 PO
--- NOTE | 2018-04-02 10:58 | Diagnostic Imaging Report ---
PROCEDURE: US Hepatic (Liver). TECHNIQUE: Multiple real-time grayscale images were obtained over the right upper quadrant in various projections. INDICATION: Epigastric pain. Findings: The liver is normal in size without focal lesions. There is cholelithiasis. There is gallbladder wall thickening up to 3.2 mm. There is no biliary ductal dilatation. Common bile duct measures less than 4 mm. Pancreas is not well visualized due to bowel gas. Right kidney is normal. There is no ascites. IMPRESSION: Cholelithiasis and gallbladder wall thickening. Acute cholecystitis cannot be excluded. Recommend clinical correlation. Dictated by: Dictated on workstation # [id number]
== END ==
LOC: RAD 09:43
PROVIDERS: ATTEND Family Medicine
DX: K80.20 Calculus of gallbladder without cholecystitis without obstruction (principal); K82.8 Other specified diseases of gallbladder; R74.8 Abnormal levels of other serum enzymes
CPT/HCPCS: 76705

== ENCOUNTER 2018-04-12 05:52 | Outpatient (CLI) | payer OTHER ==
[~2018-04-12] VITALS: Ht 162.6 cm; Wt 67.0 kg
== END 2018-04-12 10:27 | disposition home or self-care (01) ==
LOC: PREOP 05:52
PROVIDERS: ATTEND Surgery
DX: Z01.818 Encounter for other preprocedural examination (principal)

== ENCOUNTER 2018-04-16 08:04 | Day surgery (SDC) | payer OTHER ==
[~2018-04-16] VITALS: Ht 162.6 cm; Wt 67.0 kg
--- OUTSIDE RECORDS SUMMARY | 2018-04-16 08:09 | XMS REPORT ---
Author Author [facility] Address [address] [place] [address] Care Team Providers Care Rate Inserter Name Role Phone AGNES CODY Unavailable PROBLEMS Unknown Problems ALLERGIES No Information ENCOUNTERS Encounter Location Date Diagnosis [place] [id number] [place] [address] [phone]- 9235 Mar, [place] [id number] [place] [address] 08723- 2148 Feb, Elevated liver enzymes R74.8 and Epigastric pain R10.13 [place] [id number] [place] [address] 10614- 0725 11 Feb, 2018 Third trimester Z34.93 and 39 weeks gestation of Z3A.39 [place] [id number] [place] [address] 15417- 9929 04 Feb, 2018 care, first in third trimester Z34.03 and 38 weeks gestation of Z3A.38 [place] [address] [place] [id number] [place] [address] 69568- 4652 Jan, care, first in third trimester Z34.03 and 37 weeks gestation of Z3A.37 [place] [address] [place] [id number] [place] [address] 61563- 6269 Jan, care, first in third trimester Z34.03 ; Third trimester Z34.93 and 36 weeks gestation of Z3A.36 [place] [address] [place] [id number] [place] [address] 25668- 7864 Jan, care, first in third trimester Z34.03 and 34 weeks gestation of Z3A.34 [place] [address] [place] [address] [id number] [address] 24 Dec, 2017 Third trimester Z33.1 and 32 weeks gestation of Z3A.32 [place] [address] [place] [id number] [place] [address] 27962- 4243 Dec, [place] [address] [place] [id number] [place] [address] 04375- 9815 10 Dec, 2017 Third trimester Z34.93 ; Encounter for immunization Z23 ; Evaluate anatomy not seen on prior sonogram Z04.8 and 30 weeks gestation of Z3A.30 [place] [address] [place] [id number] [place] [address] 33110- 2805 27 Nov, 2017 Diabetes mellitus screening Z13.1 ; 28 weeks gestation of Z3A.28 and care, first in third trimester Z34.03 [place] [address] [place] [id number] [place] [address] 58331- 9[address] 07 Nov, 2017 Encounter for physical examination related to employment Z02.1 [place] [address] [place] [id number] [place] [address] 45922- 4996 24 Oct, 2017 [place] [address] [place] [id number] [place] [address] 35519- 0674 14 Oct, 2017 21 weeks gestation of Z3A.21 ; Evaluate anatomy not seen on prior sonogram Z04.8 and care in second trimester Z34.92 [place] [id number] [place] [address] 99953- 1757 Sep, Second trimester Z34.92 and 17 weeks gestation of Z3A.17 [place] [address] [place] [address] 99128- 7808 Aug, [place] [address] [place] [id number] [place] [address] 28342- 7619 Aug, care in first trimester Z34.91 and 12 weeks gestation of Z3A.12 [place] [address] [place] [id number] [place] [address] 16412- 1972 Jul, [facility] [id number] [address] 13 Jul, 2017 Tobacco abuse Z72.0 [place] [address] [address] 12 Jul, 2017 Normal , first Z34.00 ; Cervical cancer screening Z12.4 and 8 weeks gestation of Z3A.08 [facility] [address] [address] 02 Jul, 2017 Encounter for test Z32.00 [facility] [address] [address] Jul, [facility] [address] [address] 07 Mar, 2016 Right wrist pain M25.531 and Injury of tendon of right hand , initial encounter S66.901A IMMUNIZATIONS No Known Immunizations SOCIAL HISTORY Never Assessed REASON FOR VISIT OB 1wk f/u -- natalya pineda PLAN OF CARE Activity Details Follow Up 1 Week, 1 Week Reason: VITAL SIGNS Height 64 in 2018-02-21 Weight 170.0 lbs 2018-02-21 Temperature 98.0 degrees Fahrenheit 2018-02-21 Heart Rate 86 bpm 2018-02-21 Respiratory Rate 20 2018-02-21 BMI 29.18 kg/m2 2018-02-21 Blood pressure systolic 138 mmHg 2018-02-21 Blood pressure diastolic 86 mmHg 2018-02-21 MEDICATIONS Medication Instructions Dosage Frequency Start Date End Date Duration Status Vitamin 27-0.8 MG Active Ranitidine Acid [employer] Chief Active Tums Active RESULTS Name Result Date Reference Range UA OB DIP (IN HOUSE) 2018-02-21 Glucose neg Protein neg PROCEDURES Procedure Date Ordered Result Body Site URINE-NO MICRO Feb 21, 2018 INSTRUCTIONS MEDICATIONS ADMINISTERED No Known Medications MEDICAL (GENERAL) HISTORY Type Description Date Medical History Heart Murmur Surgical History Appendectomy 1995 Hospitalization History Appendectomy 1995
--- OUTSIDE RECORDS SUMMARY | 2018-04-16 08:09 | XMS REPORT ---
Author Author ESCOBAR AGNES [facility] Address [address] [place] [address] Care Team Providers Care Tray Line Worker Name Role Phone AGNES CODY Unavailable PROBLEMS Unknown Problems ALLERGIES No Information ENCOUNTERS Encounter Location Date Diagnosis [place] [id number] [place] [address] 48167- 2588 Mar, [place] [id number] [place] [address] 52867- 2756 Feb, Elevated liver enzymes R74.8 and Epigastric pain R10.13 [place] [id number] [place] [address] 68524- 5121 11 Feb, 2018 Third trimester Z34.93 and 39 weeks gestation of Z3A.39 [place] [id number] [place] [address] 20042- 8779 04 Feb, 2018 care, first in third trimester Z34.03 and 38 weeks gestation of Z3A.38 [place] [id number] [place] [address] 11435- 2596 Jan, care, first in third trimester Z34.03 and 37 weeks gestation of Z3A.37 [place] [id number] [place] [address] 90998- 2417 Jan, care, first in third trimester Z34.03 ; Third trimester Z34.93 and 36 weeks gestation of Z3A.36 [place] [id number] [place] [address] 68663- 8421 Jan, care, first in third trimester Z34.03 and 34 weeks gestation of Z3A.34 [place] [id number] [address] 8250 24 Dec, 2017 Third trimester Z33.1 and 32 weeks gestation of Z3A.32 [place] [id number] [place] [address] 20800- 2141 Dec, [place] [id number] [place] [address] 62142- 0421 10 Dec, 2017 Third trimester Z34.93 ; Encounter for immunization Z23 ; Evaluate anatomy not seen on prior sonogram Z04.8 and 30 weeks gestation of Z3A.30 [place] [id number] [place] [address] 58692- 6104 27 Nov, 2017 Diabetes mellitus screening Z13.1 ; 28 weeks gestation of Z3A.28 and care, first in third trimester Z34.03 [place] [id number] [place] [address] 22963- 3650 07 Nov, 2017 Encounter for physical examination related to employment Z02.1 [place] [id number] [place] [address] 59172- 4097 24 Oct, 2017 [place] [id number] [place] [address] 52424- 8567 14 Oct, 2017 21 weeks gestation of Z3A.21 ; Evaluate anatomy not seen on prior sonogram Z04.8 and care in second trimester Z34.92 [place] [id number] [place] [address] 08798- 0010 Sep, Second trimester Z34.92 and 17 weeks gestation of Z3A.17 [place] [id number] [place] [address] 02931- 4916 Aug, [place] [id number] [place] [address] 78639- 7041 Aug, care in first trimester Z34.91 and 12 weeks gestation of Z3A.12 [place] [id number] [place] [address] 77495- 4844 Jul, [facility] [place] [id number] [address] 7193 13 Jul, 2017 Tobacco abuse Z72.0 [place] [address] [address] 0810 12 Jul, 2017 Normal , first Z34.00 ; Cervical cancer screening Z12.4 and 8 weeks gestation of Z3A.08 [facility] [place] [address] [address] 4824 02 Jul, 2017 Encounter for test Z32.00 [facility] [place] [address] [address] Jul, [facility] [address] [address] 07 Mar, 2016 Right wrist pain M25.531 and Injury of tendon of right hand , initial encounter S66.901A IMMUNIZATIONS No Known Immunizations SOCIAL HISTORY Never Assessed REASON FOR VISIT OB 1wk f/u, cervix check-awoods PLAN OF CARE Activity Details Follow Up 1 Week, 1 Week Reason: VITAL SIGNS Height 64 in 2018-03-06 Weight 170 lbs 2018-03-06 Temperature 98.6 degrees Fahrenheit 2018-03-06 Heart Rate 106 bpm 2018-03-06 Respiratory Rate 18 2018-03-06 BMI 29.18 kg/m2 2018-03-06 Blood pressure systolic 122 mmHg 2018-03-06 Blood pressure diastolic 72 mmHg 2018-03-06 MEDICATIONS Medication Instructions Dosage Frequency Start Date End Date Duration Status Vitamin 27-0.8 MG Active Ranitidine Acid Gem Cutter Active Tums Active RESULTS Name Result Date Reference Range UA OB DIP (IN HOUSE) 2018-03-06 Glucose neg Protein neg PROCEDURES Procedure Date Ordered Result Body Site URINE-NO MICRO Mar 06, 2018 INSTRUCTIONS MEDICATIONS ADMINISTERED No Known Medications MEDICAL (GENERAL) HISTORY Type Description Date Medical History Heart Murmur Surgical History Appendectomy 1995 Hospitalization History Appendectomy 1995
--- OUTSIDE RECORDS SUMMARY | 2018-04-16 08:09 | XMS REPORT ---
Author Author ESCOBAR AGNES [facility] Address [address] [place] [address] Care Team Providers Care Sap Business Analyst Name Role Phone AGNES CODY Unavailable PROBLEMS Unknown Problems ALLERGIES No Information ENCOUNTERS Encounter Location Date Diagnosis [place] [id number] [place] [address] 67185- 9846 Mar, [place] [id number] [place] [address] 45819- 1318 Feb, Elevated liver enzymes R74.8 and Epigastric pain R10.13 [place] [id number] [place] [address] 05947- 8774 11 Feb, 2018 Third trimester Z34.93 and 39 weeks gestation of Z3A.39 [place] [id number] [place] [address] 49309- 7345 04 Feb, 2018 care, first in third trimester Z34.03 and 38 weeks gestation of Z3A.38 [place] [id number] [place] [address] 32146- 8402 Jan, care, first in third trimester Z34.03 and 37 weeks gestation of Z3A.37 [place] [id number] [place] [address] 31880- 1620 Jan, care, first in third trimester Z34.03 ; Third trimester Z34.93 and 36 weeks gestation of Z3A.36 [place] [id number] [place] [address] 88614- 5321 Jan, care, first in third trimester Z34.03 and 34 weeks gestation of Z3A.34 [place] [id number] [address]- 9818 24 Dec, 2017 Third trimester Z33.1 and 32 weeks gestation of Z3A.32 [place] [id number] [place] [address] 81579- 9845 Dec, [place] [id number] [place] [address] 53872- 2748 10 Dec, 2017 Third trimester Z34.93 ; Encounter for immunization Z23 ; Evaluate anatomy not seen on prior sonogram Z04.8 and 30 weeks gestation of Z3A.30 [place] [id number] [place] [address] 75674- 4516 27 Nov, 2017 Diabetes mellitus screening Z13.1 ; 28 weeks gestation of Z3A.28 and care, first in third trimester Z34.03 [place] [id number] [place] [address] 66257- 8927 07 Nov, 2017 Encounter for physical examination related to employment Z02.1 [place] [id number] [place] [address] 46835- 0806 24 Oct, 2017 [place] [id number] [place] [address] 41211- 8375 14 Oct, 2017 21 weeks gestation of Z3A.21 ; Evaluate anatomy not seen on prior sonogram Z04.8 and care in second trimester Z34.92 [place] [address] [place] [address] 27420- 5311 Sep, Second trimester Z34.92 and 17 weeks gestation of Z3A.17 [place] [address] [place] [address] 43064- 9164 Aug, [place] [id number] [place] [address] 04185- 7673 Aug, care in first trimester Z34.91 and 12 weeks gestation of Z3A.12 [place] [id number] [place] [address] 39978- 6113 Jul, [facility] [address] [facility] [id number] [address]- 4117 13 Jul, 2017 Tobacco abuse Z72.0 [place] [address], [place] [address]- 9262 12 Jul, 2017 Normal , first Z34.00 ; Cervical cancer screening Z12.4 and 8 weeks gestation of Z3A.08 [facility] [address], [place] [address]- 4095 02 Jul, 2017 Encounter for test Z32.00 [facility] [address], [place] [address]- 9438 02 Jul, 2017 [facility] [address], [place] [address] -1743 07 Mar, 2016 Right wrist pain M25.531 and Injury of tendon of right hand , initial encounter S66.901A IMMUNIZATIONS No Known Immunizations SOCIAL HISTORY Never Assessed REASON FOR VISIT OB 1wk f/u -- natalya pineda PLAN OF CARE Activity Details Follow Up 1 Week, 1 Week, 1 Week, 1 Week, 1 Week, 1 Week Reason: VITAL SIGNS Height 64 in 2018-02-27 Weight 172.0 lbs 2018-02-27 Temperature 98.0 degrees Fahrenheit 2018-02-27 Heart Rate 70 bpm 2018-02-27 Respiratory Rate 18 2018-02-27 BMI 29.524 kg/m2 2018-02-27 Blood pressure systolic 140 mmHg 2018-02-27 Blood pressure diastolic 86 mmHg 2018-02-27 MEDICATIONS Medication Instructions Dosage Frequency Start Date End Date Duration Status Ranitidine Acid Failure Analysis Engineer Active Vitamin 27-0.8 MG Active Tums Active RESULTS Name Result Date Reference Range UA OB DIP (IN HOUSE) 2018-02-27 Glucose neg Protein neg PROCEDURES Procedure Date Ordered Result Body Site URINE-NO MICRO Feb 27, 2018 INSTRUCTIONS MEDICATIONS ADMINISTERED No Known Medications MEDICAL (GENERAL) HISTORY Type Description Date Medical History Heart Murmur Surgical History Appendectomy 1995 Hospitalization History Appendectomy 1995
--- OUTSIDE RECORDS SUMMARY | 2018-04-16 08:09 | XMS REPORT ---
Author Author ESCOBAR AGNES [facility] Address [address] [place] [address] Care Team Providers Care Correspondence Clerk Name Role Phone ESCOBAR AGNES Unavailable PROBLEMS Unknown Problems ALLERGIES Substance Reaction Event Type Date Status Erythromycin Unknown Drug Allergy Feb, Active ENCOUNTERS Encounter Location Date Diagnosis [address] [address]- 6879 Mar, [address] 53207- 6303 Feb, Elevated liver enzymes R74.8 and Epigastric pain R10.[address] 67657- 9106 11 Feb, 2018 Third trimester Z34.93 and 39 weeks gestation of Z3A.[address] 54990- 7802 04 Feb, 2018 care, first in third trimester Z34.03 and 38 weeks gestation of Z3A.38 [place] [id number] [place] [address] 35843- 5184 Jan, care, first in third trimester Z34.03 and 37 weeks gestation of Z3A.37 [address] [id number] [place] [address] 95255- 4704 Jan, care, first in third trimester Z34.03 ; Third trimester Z34.93 and 36 weeks gestation of Z3A.36 [place] [id number] [place] [address] 26519- 2085 07 Jan, 2018 care, first in third trimester Z34.03 and 34 weeks gestation of Z3A.34 [place] [address] [place] [address] 60589- 4161 24 Dec, 2017 Third trimester Z33.1 and 32 weeks gestation of Z3A.32 [place] [id number] [place] [address] 76306- 6528 Dec, [place] [id number] [place] [address] 77854- 1199 Dec, Third trimester Z34.93 ; Encounter for immunization Z23 ; Evaluate anatomy not seen on prior sonogram Z04.8 and 30 weeks gestation of Z3A.30 [place] [id number] [place] [address] 83840- 8054 27 Nov, 2017 Diabetes mellitus screening Z13.1 ; 28 weeks gestation of Z3A.28 and care, first in third trimester Z34.03 [place] [id number] [place] [address] 98422- 9584 07 Nov, 2017 Encounter for physical examination related to employment Z02.1 [place] [id number] [place] [address] 12349- 8752 October, [place] [id number] [place] [address] 71431- 6759 October, 21 weeks gestation of Z3A.21 ; Evaluate anatomy not seen on prior sonogram Z04.8 and care in second trimester Z34.92 [place] [address] [place] [address] 36707- 8287 Sep, Second trimester Z34.92 and 17 weeks gestation of Z3A.17 [place] [id number] [place] [address] 53994- 9593 Aug, [place] [id number] [place] [address] 94290- 8486 Aug, care in first trimester Z34.91 and 12 weeks gestation of Z3A.12 [place] [id number] [place] [address] 28081- 1055 Jul, [facility] [address] [place] [address] 88119- 4224 13 Jul, 2017 Tobacco abuse Z72.0 [place] [address] [place] [address] 80165- 8614 12 Jul, 2017 Normal , first Z34.00 ; Cervical cancer screening Z12.4 and 8 weeks gestation of Z3A.08 [place] [id number] [place] [address] 84342- 2777 Jul, Encounter for test Z32.00 [place] [id number] [place] [address] 42880- 9819 Jul, [facility] [address] [place] [address] 74705 -0133 Mar, Right wrist pain M25.531 and Injury of tendon of right hand , initial encounter S66.901A IMMUNIZATIONS No Known Immunizations SOCIAL HISTORY Never Assessed REASON FOR VISIT Lab f/u-Meaghan, Medications verified with [facility] PLAN OF CARE Activity Details Follow Up prn Reason: Pending Test Ultrasound : Liver VITAL SIGNS Height 64 in 2018-03-19 Weight 150.9 lbs 2018-03-19 Temperature 96.9 degrees Fahrenheit 2018-03-19 Heart Rate 72 bpm 2018-03-19 Respiratory Rate 18 2018-03-19 BMI 25.90 kg/m2 2018-03-19 Blood pressure systolic 122 mmHg 2018-03-19 Blood pressure diastolic 72 mmHg 2018-03-19 MEDICATIONS Medication Instructions Dosage Frequency Start Date End Date Duration Status Ondansetron HCl 4 MG Orally Twice a day 2 tablets 12h Feb, 30 day(s) Active Bactrim DS 800-160 MG Orally Twice a day 1 tablet 12h 15 Feb, 2018 10 day(s) Active Ibuprofen 600 MG Orally Three times a day 1 tablet with food or milk as needed 8h Feb, Active Docusate Sodium 100 MG Orally Once a day 1 capsule as needed 24h Feb, 30 day(s) Active Tums Active Hydrocodone-Acetaminophen 5-325 MG (Schedule II Drug) TK 1 T PO Q 6 H PRN FOR PAIN Feb, Feb, 3 Active RESULTS No Results PROCEDURES Procedure Date Ordered Result Body Site COMPREHEN METABOLIC PANEL Mar 19, 2018 COMPLETE CBC W/AUTO DIFF WBC Mar 19, 2018 ACUTE HEPATITIS PANEL Mar 19, 2018 VENIPUNCT, ROUTINE* Mar 19, 2018 INSTRUCTIONS MEDICATIONS ADMINISTERED No Known Medications MEDICAL (GENERAL) HISTORY Type Description Date Medical History Heart Murmur Surgical History Appendectomy 1995 Hospitalization History Appendectomy 1995
--- OUTSIDE RECORDS SUMMARY | 2018-04-16 08:09 | XMS REPORT ---
Author Author ESCOBAR AGNES [facility] Address [address] [place] [address] Care Team Providers Care Drug Abuse Social Worker Name Role Phone AGNES CODY Unavailable PROBLEMS Type Condition ICD9-CM Code [id number] Code Onset Dates Condition Status SNOMED Code Problem care, first in third trimester Z34.03 Active [id number] ALLERGIES No Information ENCOUNTERS Encounter Location Date Diagnosis [place] [id number] [place] [address] 72961- 1362 Mar, [place] [id number] [place] [address] 84409- 5344 Feb, [place] [id number] [place] [address] 45403- 1282 11 Feb, 2018 Third trimester Z34.93 and 39 weeks gestation of Z3A.39 [place] [id number] [place] [address] 46294- 9109 04 Feb, 2018 care, first in third trimester Z34.03 and 38 weeks gestation of Z3A.38 [place] [id number] [place] [address] 02470- 7324 Jan, care, first in third trimester Z34.03 and 37 weeks gestation of Z3A.37 [place] [id number] [place] [address] 45772- 3125 Jan, care, first in third trimester Z34.03 ; Third trimester Z34.93 and 36 weeks gestation of Z3A.36 [place] [id number] [place] [address] 90155- 7797 Jan, care, first in third trimester Z34.03 and 34 weeks gestation of Z3A.34 [place] [address] [place] [address] 41929- 5525 Dec, Third trimester Z33.1 and 32 weeks gestation of Z3A.32 [place] [id number] [place] [address] 68122- 8062 Dec, [place] [id number] [place] [address] 52866- 8687 Dec, Third trimester Z34.93 ; Encounter for immunization Z23 ; Evaluate anatomy not seen on prior sonogram Z04.8 and 30 weeks gestation of Z3A.30 [place] [id number] [place] [address] 31452- 1957 27 Nov, 2017 Diabetes mellitus screening Z13.1 ; 28 weeks gestation of Z3A.28 and care, first in third trimester Z34.03 [place] [id number] [place] [address] 09425- 4265 07 Nov, 2017 Encounter for physical examination related to employment Z02.1 [place] [id number] [place] [address] 26449- 6745 October, [place] [id number] [place] [address] 61430- 4217 October, 21 weeks gestation of Z3A.21 ; Evaluate anatomy not seen on prior sonogram Z04.8 and care in second trimester Z34.92 [place] [address] [place] [address] 48088- 3127 Sep, Second trimester Z34.92 and 17 weeks gestation of Z3A.17 [place] [id number] [place] [address] 81444- 2826 Aug, [place] [id number] [place] [address] 92142- 6483 Aug, care in first trimester Z34.91 and 12 weeks gestation of Z3A.12 [id number] [address]- 5523 15 Jul, 2017 [facility] [address] [place] [address] 69465- 5293 13 Jul, 2017 Tobacco abuse Z72.0 [facility] [address] [place] [address] 48427- 9667 12 Jul, 2017 Normal , first Z34.00 ; Cervical cancer screening Z12.4 and 8 weeks gestation of Z3A.08 [facility] [address] [address]- 8901 02 Jul, 2017 Encounter for test Z32.00 [place] [id number] [place] [address] 14162- 9412 02 Jul, 2017 [facility] [address], [place] [address] -6298 07 Mar, 2016 Right wrist pain M25.531 and Injury of tendon of right hand , initial encounter S66.901A IMMUNIZATIONS No Known Immunizations SOCIAL HISTORY Never Assessed REASON FOR VISIT OB 2wk f/u -- natalya pineda PLAN OF CARE Activity Details Follow Up 2 Weeks, 2 Weeks, 2 Weeks, 2 Weeks Reason: VITAL SIGNS Height 64 in 2018-01-30 Weight 165.0 lbs 2018-01-30 Temperature 97.8 degrees Fahrenheit 2018-01-30 Heart Rate 80 bpm 2018-01-30 Respiratory Rate 22 2018-01-30 BMI 28.322 kg/m2 2018-01-30 Blood pressure systolic 138 mmHg 2018-01-30 Blood pressure diastolic 86 mmHg 2018-01-30 MEDICATIONS Medication Instructions Dosage Frequency Start Date End Date Duration Status Ranitidine Acid Wincher Active Vitamin 27-0.8 MG Active Tums Active RESULTS No Results PROCEDURES Procedure Date Ordered Result Body Site URINE-NO MICRO Jan 30, 2018 INSTRUCTIONS MEDICATIONS ADMINISTERED No Known Medications MEDICAL (GENERAL) HISTORY Type Description Date Medical History Heart Murmur Surgical History Appendectomy 1995 Hospitalization History Appendectomy 1995
--- OUTSIDE RECORDS SUMMARY | 2018-04-16 08:09 | XMS REPORT ---
Author Author ESCOBAR AGNES [facility] Address [address] [place] [address] Care Team Providers Care Cylinder Devalver Name Role Phone AGNES CODY Unavailable PROBLEMS Type Condition ICD9-CM Code [id number] Code Onset Dates Condition Status SNOMED Code Problem care, first in third trimester Z34.03 Active 996674852 ALLERGIES No Information ENCOUNTERS Encounter Location Date Diagnosis [place] [id number] [place] [address] 24328- 7661 Mar, [place] [facility] [id number] [place] [address] 34091- 8627 Feb, [place] [id number] [place] [address] 43635- 6217 11 Feb, 2018 Third trimester Z34.93 and 39 weeks gestation of Z3A.39 [facility] [facility] [id number] [place] [address] 59763- 6179 04 Feb, 2018 care, first in third trimester Z34.03 and 38 weeks gestation of Z3A.38 [facility] [facility] [id number] [place] [address] 66228- 0492 Jan, care, first in third trimester Z34.03 and 37 weeks gestation of Z3A.37 [place] [id number] [place] [address] 35128- 9271 Jan, care, first in third trimester Z34.03 ; Third trimester Z34.93 and 36 weeks gestation of Z3A.36 [place] [id number] [place] [address] 29885- 5727 Jan, care, first in third trimester Z34.03 and 34 weeks gestation of Z3A.34 [place] [address] [place] [address] 74214- 7681 Dec, Third trimester Z33.1 and 32 weeks gestation of Z3A.32 [place] [id number] [place] [address] 64855- 5835 Dec, [place] [id number] [place] [address] 26018- 3009 Dec, Third trimester Z34.93 ; Encounter for immunization Z23 ; Evaluate anatomy not seen on prior sonogram Z04.8 and 30 weeks gestation of Z3A.30 [place] [id number] [place] [address] 38727- 9193 27 Nov, 2017 Diabetes mellitus screening Z13.1 ; 28 weeks gestation of Z3A.28 and care, first in third trimester Z34.03 [place] [id number] [place] [address] 03798- 1586 07 Nov, 2017 Encounter for physical examination related to employment Z02.1 [place] [id number] [place] [address] 15344- 2668 October, [place] [id number] [place] [address] 06245- 2034 October, 21 weeks gestation of Z3A.21 ; Evaluate anatomy not seen on prior sonogram Z04.8 and care in second trimester Z34.92 [place] [address] [place] [address] 46309- 7234 Sep, Second trimester Z34.92 and 17 weeks gestation of Z3A.17 [place] [id number] [place] [address] 36820- 2291 Aug, [place] [id number] [place] [address] 82627- 6807 Aug, care in first trimester Z34.91 and 12 weeks gestation of Z3A.12 [id number] [address]68 15 Jul, 2017 [facility] [address] [place] [address] 01408- 2764 13 Jul, 2017 Tobacco abuse Z72.0 [facility] [address] [place] [address] 23205- 6783 12 Jul, 2017 Normal , first Z34.00 ; Cervical cancer screening Z12.4 and 8 weeks gestation of Z3A.08 [facility] [id number] [place] [address] 54734- 8582 02 Jul, 2017 Encounter for test Z32.00 [place] [id number] [place] [address] 43039- 0764 02 Jul, 2017 [facility] [address] [place] [address] 92850 -8634 07 Mar, 2016 Right wrist pain M25.531 and Injury of tendon of right hand , initial encounter S66.901A IMMUNIZATIONS No Known Immunizations SOCIAL HISTORY Never Assessed REASON FOR VISIT OB 2wk f/u-awoods PLAN OF CARE Activity Details Follow Up 2 Weeks, 2 Weeks Reason: VITAL SIGNS Height 64 in 2018-01-16 Weight 169.6 lbs 2018-01-16 Temperature 98.2 degrees Fahrenheit 2018-01-16 Heart Rate 100 bpm 2018-01-16 Respiratory Rate 20 2018-01-16 BMI 29.112 kg/m2 2018-01-16 Blood pressure systolic 124 mmHg 2018-01-16 Blood pressure diastolic 76 mmHg 2018-01-16 MEDICATIONS Medication Instructions Dosage Frequency Start Date End Date Duration Status Ranitidine 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
--- OUTSIDE RECORDS SUMMARY | 2018-04-16 08:09 | XMS REPORT ---
Author Author AGNES CODY Organization [facility] Address [address] [place] [address] Care Team Providers Care Athlete Manager Name Role Phone AGNES CODY Unavailable PROBLEMS Type Condition ICD9-CM Code [id number] Code Onset Dates Condition Status SNOMED Code Problem care, first in third trimester Z34.03 Active [id number] ALLERGIES No Information ENCOUNTERS Encounter Location Date Diagnosis [place] [id number] [place] [address] 79390- 8398 Mar, [address] [address]- 1177 Feb, Elevated liver enzymes R74.8 and Epigastric pain R10.13 [place] [id number] [place] [address] 21257- 9617 Feb, Third trimester Z34.93 and 39 weeks gestation of Z3A.39 [place] [id number] [place] [address] 48963- 0443 Feb, care, first in third trimester Z34.03 and 38 weeks gestation of Z3A.38 [place] [id number] [place] [address] 58543- 9089 Jan, care, first in third trimester Z34.03 and 37 weeks gestation of Z3A.37 [place] [address] 37590- 9371 Jan, care, first in third trimester Z34.03 ; Third trimester Z34.93 and 36 weeks gestation of Z3A.36 [place] [address] 67431- 6419 Jan, care, first in third trimester Z34.03 and 34 weeks gestation of Z3A.34 [place] [id number] [place] [address] 41429- 6768 Dec, Third trimester Z33.1 and 32 weeks gestation of Z3A.32 [place] [id number] [place] [address] 03774- 7703 Dec, [place] [id number] [place] [address] 76276- 1970 Dec, Third trimester Z34.93 ; Encounter for immunization Z23 ; Evaluate anatomy not seen on prior sonogram Z04.8 and 30 weeks gestation of Z3A.30 [place] [id number] [place] [address] 35859- 1543 27 Nov, 2017 Diabetes mellitus screening Z13.1 ; 28 weeks gestation of Z3A.28 and care, first in third trimester Z34.03 [place] [id number] [place] [address] 02881- 4757 Nov, Encounter for physical examination related to employment Z02.1 [place] [id number] [place] [address] 91941- 2863 October, [place] [id number] [place] [address] 74181- 5967 October, 21 weeks gestation of Z3A.21 ; Evaluate anatomy not seen on prior sonogram Z04.8 and care in second trimester Z34.92 [place] [id number] [place] [address] 01784- 2334 Sep, Second trimester Z34.92 and 17 weeks gestation of Z3A.17 [place] [id number] [place] [address] 93393- 7374 Aug, [place] [id number] [place] [address] 43478- 8296 Aug, care in first trimester Z34.91 and 12 weeks gestation of Z3A.12 [facility] [address] [address] 15 Jul, 2017 [facility] [address] [place] [address] 43315- 3588 13 Jul, 2017 Tobacco abuse Z72.0 [place] [address] [place] [address] 95580- 1576 12 Jul, 2017 Normal , first Z34.00 ; Cervical cancer screening Z12.4 and 8 weeks gestation of Z3A.08 [place] [address] [address] 9314 02 Jul, 2017 Encounter for test Z32.00 [place] [address] [place] [address] 04604- 6642 02 Jul, 2017 [facility] [address] [place] [address] 76340 -8822 07 Mar, 2016 Right wrist pain M25.531 and Injury of tendon of right hand , initial encounter S66.901A IMMUNIZATIONS No Known Immunizations SOCIAL HISTORY Never Assessed REASON FOR VISIT OB 2wk f/u PLAN OF CARE Activity Details Follow Up 1 Week, 1 Week, 1 Week Reason: VITAL SIGNS Height 64 in 2018-02-16 Weight 168.5 lbs 2018-02-16 Temperature 97.8 degrees Fahrenheit 2018-02-16 BMI 28.923 kg/m2 2018-02-16 Blood pressure systolic 124 mmHg 2018-02-16 Blood pressure diastolic 78 mmHg 2018-02-16 MEDICATIONS Unknown Medications RESULTS No Results PROCEDURES Procedure Date Ordered Result Body Site URINE-NO MICRO Feb 16, 2018 STREP CULTURE Feb 16, 2018 INSTRUCTIONS MEDICATIONS ADMINISTERED No Known Medications MEDICAL (GENERAL) HISTORY Type Description Date Medical History Heart Murmur Surgical History Appendectomy 1995 Hospitalization History Appendectomy 1995
[2018-04-16] MEDS ORDERED: LIDOCAINE/EPI 1%-1:200,000 (XYLOCAINE) 10 ML VIAL ONE (08:19)
[2018-04-16] MEDS: LACTATED RINGERS 1,000 ML IV PRN ×2 (08:25→10:23)
[2018-04-16] MEDS ORDERED: ceFAZolin 2 GM IV Premixed 50 ML IV ONE (08:45)
[2018-04-16 08:50] LABS: BASOPHILS % (AUTO) 1 % (0-10); EOSINOPHILS # (AUTO) 0.2 10^3/uL (0.0-0.3); EOSINOPHILS % (AUTO) 3 % (0-10); HEMATOCRIT 40 % (35-52); HEMOGLOBIN 14.1 G/DL (11.5-16.0); LYMPHOCYTES # (AUTO) 2.1 X 10^3 (1.0-4.0); LYMPHOCYTES % (AUTO) 32 % (12-44); MEAN CORPUSCULAR HEMOGLOBIN 32 PG (25-34); MEAN CORPUSCULAR HGB CONC 35 G/DL (32-36); MEAN CORPUSCULAR VOLUME 92 FL (80-99); MEAN PLATELET VOLUME 10.1 FL (7.4-10.4); MONOCYTES # (AUTO) 0.4 X 10^3 (0.0-1.0); MONOCYTES % (AUTO) 6 % (0-12); NEUTROPHILS # (AUTO) 3.9 X 10^3 (1.8-7.8); NEUTROPHILS % (AUTO) 59 % (42-75); PLATELET COUNT 310 10^3/uL (130-400); RED BLOOD COUNT 4.39 10^6/uL (4.35-5.85); WHITE BLOOD COUNT 6.6 10^3/uL (4.3-11.0)
[2018-04-16] MEDS ORDERED: MIDAZOLAM 2 MG/2 ML (VERSED) VIAL ONE (09:21)
[2018-04-16] MEDS ORDERED: LACTATED RINGERS 1,000 ML IV ONE ×2 (09:21→10:22)
[2018-04-16] MEDS ORDERED: proPOfol 200 MG/20 ML (DIPRIVAN) VIAL IV ONE (09:21)
[2018-04-16] MEDS ORDERED: LIDOCAINE PF 2% 5 ML (XYLOCAINE) VIAL ONE (09:21)
[2018-04-16] MEDS ORDERED: fentaNYL INJECTION 100 MCG/2 ML AMP ONE (09:21)
[2018-04-16] MEDS ORDERED: SEVOFLURANE (ULTANE) 15 ML INHAL SOLN ONE ×3 (09:25→10:35)
[2018-04-16] MEDS ORDERED: ROCURONIUM 10 MG/ML 5 ML SYRINGE IV ONE (09:25)
--- NOTE | 2018-04-16 09:25 | Progress Note-Pre Operative ---
Pre-Operative Progress Note H&P Reviewed The H&P was reviewed, patient examined and no changes noted. Time Seen by Provider: 09:21 Date H&P Reviewed: Apr 16, 2018 Time H&P Reviewed: 09:22 Pre-Operative Diagnosis: taya/taya ARABELLA PITTS DO Apr 16, 2018 09:25
--- NOTE | 2018-04-16 10:23 | Progress Note-Post Operative ---
Post-Operative Progess Note Surgeon (s)/It Operations Manager (s) Surgeon ARABELLA PITTS DO It Operations Manager: Dominique Pre-Operative Diagnosis taya/taya Post-Operative Diagnosis same Procedure & Operative Findings Date of Procedure 04/16/18 Procedure Performed/Findings Lap taya with IOC Anesthesia Type GET Estimated Blood Loss Estimated blood loss (mL): scant Specimens/Packing Specimens Removed GB and contents ARABELLA PITTS DO Apr 16, 2018 10:23
[2018-04-16] MEDS ORDERED: ACHD5005 PO (10:24)
--- NOTE | 2018-04-16 10:26 | Discharge Inst-Surgical ---
Discharge Inst-Surgical Depart Medication/Instructions New, Converted or Re-Newed RX: RX Given to Pt/Family Patient Instructions Follow up Appt: Make appointment for 1 week. Instructions: No lifting greater than 10 pounds. No strenuous activity. May shower in 24 hours, no tub bath or soaking. Use incentive spirometer at home as directed. No Smoking Skin/Wound Care: May remove bandages in am. You need to leave the Dermabond on over incision it will fall off on its own. Symptoms to Report: Appetite Changes, Extremity Discoloration, Numbness/Tingling, Swelling Increased , Bleeding Excessive, Eyesight Changes, Pain Increased, Urine Color Change, Constipation(Persistent), Fever over 101 degree F, Pain/Pressure in chest, Urinating Difficulty, Cough Up/Vomit Blood, Heart Beat Irreg/Pounding, Pain/ Pressure in jaw, Vaginal Bleeding Increase, Cramps in feet or legs, Lightheadedness, Pain/Pressure in shoulder, Diarrhea(Persistent), Memory Changes Suddenly, Questions/Concerns, Weight gain consecutive days, Dizziness/ Fainting, Nausea/Vomiting, Shortness of Breath, Weight gain over 2 pounds. If eyes or skin turn yellow notify physician. If questions or concerns contact your physician Or seek help at emergency department. Activity Activity as Tolerated: Yes Driving Instructions: No Driving/Refer to Diet Discharge Diet: Avoid Fatty Foods, Low Fat/Low Cholesterol Diet After 24 Hours: Clear Liquid if Nauseous If Any Problems/Questions/Issu: Contact Your Physician, Go to Emergency Room Skin/Wound Care Infection Signs and Symptoms: Increased Redness, Foul Odor of Wound, Increased Drainage, Skin Itchy or Has a Rash, Increased Swelling, Temperature Above 101 F Wound Care Comment: Heating pad to shoulder or neck tonight for pain Bathing Instructions: Shower Stitches/Daniela/Dermabond Dis: Dermabond Ice Pack: Ice On and Off Site (as needed for pain) ARABELLA PITTS DO Apr 16, 2018 10:26
[2018-04-16] MEDS ORDERED: GLYCOPYRROLATE 0.2 MG/ML (ROBINUL) 2 ML VIAL ONE (10:29)
[2018-04-16] MEDS ORDERED: NEOSTIGMINE 1 MG/ML 5 ML SYRINGE ONE (10:29)
[2018-04-16] MEDS ORDERED: morphine INJ 10 MG/ML 1ML (SYR OR VIAL) ONE (10:52)
[2018-04-16] MEDS ORDERED: ONDANSETRON 4 MG/2 ML (SDV) Z0FRAN IVP PRN (11:00)
[2018-04-16] MEDS ORDERED: MEPERIDINE (DEMEROL) INJ 50 MG/ML IVP ONE (11:00)
[2018-04-16] MEDS ORDERED: morphine INJ 10 MG/ML 1ML (SYR OR VIAL) IVP ONE (11:00)
[2018-04-16 11:45] VITALS: BP 114/73
[2018-04-16 12:15] VITALS: BP 122/72
[2018-04-16 12:37] VITALS: BP 114/73
[2018-04-16 12:45] VITALS: BP 110/70
--- NOTE | 2018-04-16 13:23 | Diagnostic Imaging Report ---
INDICATION: Cholecystectomy. TECHNIQUE: Fluoroscopy was provided in the OR during intraoperative cholangiogram. 8 seconds of fluoroscopic time was utilized. FINDINGS: Images demonstrate contrast being injected via the cystic duct remnant. The intrahepatic and extrahepatic bile ducts are opacified. No filling defects are seen to suggest a retained stone. There is contrast extending into the duodenum. There does appear to be an accessory right hepatic duct. IMPRESSION: Fluoroscopy for intraoperative cholangiogram, as described. Dictated by: Dictated on workstation # [id number]
--- NOTE | 2018-04-16 14:50 | Anesthesia-General Post-Op ---
General Patient Condition Mental Status/LOC: Same as Preop Cardiovascular: Satisfactory Nausea/Vomiting: Absent Respiratory: Satisfactory Pain: Controlled Complications: Absent Post Op Complications Complications None Follow Up Care/Instructions Patient Instructions None needed. Anesthesia/Patient Condition Patient Condition Patient is doing well, no complaints, stable vital signs, no apparent adverse anesthesia problems. No complications reported per nursing. D/C home per [facility] Criteria: Yes IRWIN CLINE CRNA Apr 16, 2018 14:50
--- NOTE | 2018-04-16 22:09 | OPERATIVE REPORT ---
DATE OF SERVICE: PREOPERATIVE DIAGNOSES: Cholelithiasis, cholecystitis. POSTOPERATIVE DIAGNOSES: Cholelithiasis, cholecystitis. PROCEDURE: Laparoscopic cholecystectomy, intraoperative cholangiogram. SURGEON: Maury Spears DO. CONTINUOUS LINTER DRIER OPERATOR: Dwayne Fox DO. ANESTHESIA: General endotracheal tube. SPECIMEN: Gallbladder and contents. BLOOD LOSS: Scant. FLUIDS: Per anesthesia. POSTOPERATIVE CONDITION: Stable. INDICATION FOR PROCEDURE: The patient is a 33-year-old female who is having some right upper quadrant pain usually associated with fried and fatty foods, had an ultrasound which showed stones, signs of classic cholecystitis. FINDINGS: The patient had maybe a little bit of edema around the gallbladder and oddly shaped gallbladder removed without any difficulty. Cholangiogram showed no stones in the duct. PROCEDURE NOTE: After informed consent was obtained, the patient was brought to the operating room, placed on the table in supine position. She was sterilely prepped and draped in normal fashion. Local lidocaine was used to infiltrate the skin above the umbilicus. Made an incision with #11 blade, carried down through the skin into the subcutaneous tissue, then deepened down to the subcutaneous tissue with Bovie electrocautery down to the fascia. Fascia was incised with Bovie electrocautery and bluntly entered the abdomen, swept a finger around, placed 0 Vicryl [id number] suture and placed an 11 mm trocar port under direct visualization. Created pneumoperitoneum and then placed 3 more ports in normal fashion using local lidocaine, 11 blade for stab incision and the VersaStep system, all done under direct visualization, 1 in the subxiphoid and 2 in the right upper quadrant. The patient was then placed in slightly reverse Trendelenburg, able to visualize the gallbladder, grasped at the fundus and taken in superior direction and started dissecting out cystic duct and cystic artery, able to grasp Ana Paula's pouch and pulled in inferolateral direction to help pull this out away from the common duct, dissected around the cystic duct and cystic artery, able to get around the cystic duct and the cystic artery and placed 1 clip distally on the cystic duct and then 1 distally and 2 proximally on the cystic artery. Cut the cystic duct senior care through Metzenbaum scissors. Placed a cholangiogram catheter and shot a cholangiogram. Good spillage of dye down the common bile duct into the small intestine as well as up into common hepatic and right and left hepatics. Then removed the cholangiogram catheter, placed 2 clips proximally on the cystic duct and cut the cystic duct and cystic artery with Metzenbaum scissors. Removed the gallbladder from the bed of the liver with L-hook cautery, which was completely removed and placed a bag in the abdomen, placed the gallbladder in the bag and then removed this through supraumbilical incision. Placed the port back in the abdomen, copiously irrigated with normal saline, took picture of the liver, no other obvious pathology seen. There was a little bit of adhesion. The cecum and ascending colon stuck up to the abdominal wall, took a picture of this, but did not need to be taken down. At this point, placed the patient supine and then removed all ports under direct visualization, allowed pneumoperitoneum to escape as well as suctioned out. Closed the supraumbilical incision, closing the fascia with 0 Vicryl suture previously placed and copiously irrigated all incisions with normal saline and closed the 3 small 5 mm incisions with a single interrupted 4-0 undyed Monocryl subcuticular stitch. Closed the supraumbilical incision with 3 interrupted 4-0 undyed Monocryl subcuticular stitches. The area was cleaned and dried. Dermabond was placed as well as bandage. The patient was then transferred to recovery room in stable condition. Sponge, instrument and needle count correct at the end of the case. Dr. Fox assisted in this case helping to make incisions as well as closing incisions and helping to identify anatomy and hold anatomy out of the way. Job ID: [id number] DocumentID: [id number] Dictated Date: 04/16/2018 11:25:39 Chute Tender Date: 04/16/2018 22:09:11 Dictated By: DO IRINA GARVIN
== END 2018-04-16 13:03 | disposition home or self-care (01) ==
LOC: SDC 08:04
PROVIDERS: ATTEND Surgery
DX: K80.10 Calculus of gallbladder with chronic cholecystitis without obstruction (principal); F17.210 Nicotine dependence, cigarettes, uncomplicated
CPT/HCPCS: 36415; 84703; 85025; 87081